=== PATIENT | male | born 1930 | race Caucasian/White ===

== ENCOUNTER 2018-04-19 11:05 | Inpatient (IN) | payer OTHER, MEDICARE ==
--- NOTE | 2018-04-19 11:12 | EDPHY ---
HPI/HX/ROS/PE/MDM Narrative: CHIEF COMPLAINT: Fall, left hip pain, loss of consciousness HISTORY OF PRESENT ILLNESS: The patient is an anticoagulated (aspirin) 88 y/o male with a history of diabetes, hypertension, hypercholesterolemia, complaining of left hip pain after fall this morning. He reports a mechanical fall when his left knee gave out while he was trying to clean the windows of his motor home. He was unable to stand after the fall and crawled back to his motor home. He denies loss of consciousness. He denies chest pain, cardiac history, lightheadedness, dizziness, or any other associated symptoms. No fever, chills, chest pain, shortness of breath, palpitations, vomiting, diarrhea, urinary complaints, headache, lightheadedness. REVIEW OF SYSTEMS: Aside from elements discussed in the HPI, a comprehensive 10-point review of systems was reviewed and is negative. PAST MEDICAL HISTORY: Diabetes mellitus type II, hypertension, hypercholesteremia, hypothyroid, depression SOCIAL HISTORY: Enjoys [employer] hunting, lives in [place], retired VITAL SIGNS: Reviewed by me GENERAL: Well-developed, well-nourished, reporting left hip pain. Skin slightly cool to the touch, likely from being outside. HEENT: Atraumatic. No facial or head trauma. Eyes: No icterus, no injection. ARIN. EOMI. Mouth: moist mucous membranes. No erythema or lesions. Neck: supple with no adenopathy. Nontender to palpation. LUNGS: Clear to auscultation bilaterally, no wheezes, rhonchi or rales. No chest trauma noted. CARDIAC: Regular rate and rhythm, no rubs, murmurs or gallops. ABDOMEN: Soft, nontender, nondistended, bowel sounds normal. BACK: No CVA tenderness. EXTREMITIES: Left lower extremity is internally rotated and shortened left lower extremity. Exam deferred pending x-ray. Pelvis is stable to compression. No trauma noted in the right lower extremity or left upper extremity. NEURO: Alert and oriented, grossly nonfocal. SKIN: Warm and dry, no rash. PSYCHIATRIC: Normal mentation, no agitation. ED Course: The patient presents with left hip pain after mechanical fall. He denies chest pain, lightheadedness, dizziness, or any other associated symptoms. He is unable to bear weight. On exam, his left lower extremity is internally rotated and shortened. Plan for hip x-ray, chest x-ray, CBC, basic metabolic panel, troponin, and EKG. 12:00 PM - X-ray indicates a fracture in the left hip. He will be admitted. Dr. Hernandez will be the admitting physician. Dr. Aparicio, orthopedics will consult. Surgery tentatively for this evening. No significant abnormalities in the patient's lab work. Troponin is 0.02. No ischemic changes on the EKG. 12-LEAD EKG: Please see the full report in [facility]. My interpretation: Sinus rhythm Patient received Dilaudid on several occasions for pain relief. MDM: Differential diagnosis of this patient's injury was considered including but not limited to intracranial injury, long bone and pelvic bone fracture, spinal injury, extremity injury, lacerations, abrasions, and contusions. - Data Points Imaging Results: Left Hip: Impression: Left femoral neck basicervical fracture with slight displacement. Dictated By: Amos Mendiola CXR: Impression: 1. Mild chronic bronchitis/airways disease. 2. Atherosclerotic aorta. 3. No focal pneumonia. Dictated By: Amos Mendiola Imaging: I viewed and interpreted images myself Laboratory Results: Laboratory Results 04/19/18 11:00 04/19/18 11:00 Medications Given: Acetaminophen (Tylenol) 650 mg PO Q4HRS PRN PRN Reason: Pain, Mild/Fever, Can Take PO Stop: 10/16/18 13:00 Last Admin: 04/19/18 18:28 Dose: 650 mg Amlodipine Besylate (Norvasc) 5 mg PO DAILY LIZY Stop: 10/17/18 08:59 Last Admin: 04/20/18 09:31 Dose: 5 mg Atorvastatin Calcium (Lipitor) 40 mg PO HS LIZY Stop: 10/16/18 20:59 Last Admin: 04/19/18 19:59 Dose: 40 mg Benazepril HCl (Lotensin) 20 mg PO DAILY LIZY Stop: 10/17/18 08:59 Last Admin: 04/20/18 09:31 Dose: 20 mg Enoxaparin Sodium (Lovenox) 30 mg SC DAILY LIZY Stop: 10/17/18 08:59 Last Admin: 04/20/18 07:38 Dose: Not Given Escitalopram Oxalate (Lexapro) 10 mg PO DAILY LIZY Stop: 10/17/18 08:59 Last Admin: 04/20/18 09:31 Dose: 10 mg Furosemide (Lasix) 20 mg PO DAILY LIZY Stop: 10/17/18 08:59 Last Admin: 04/20/18 09:31 Dose: 20 mg Hydromorphone HCl (Dilaudid) 1 mg IVP Q4HRS PRN PRN Reason: Pain, Severe Unable to Take PO Stop: 04/29/18 14:13 Last Admin: 04/19/18 14:45 Dose: 1 mg Sodium Chloride (Ns) 1,000 mls @ 100 mls/hr IV CONT ILZY Stop: 10/16/18 13:14 Last Admin: 04/20/18 00:41 Dose: 1,000 mls Levothyroxine Sodium (Synthroid) 137 mcg PO DAILY06 [facility] Stop: 10/17/18 05:59 Last Admin: 04/20/18 05:35 Dose: 137 mcg Miscellaneous Medication (Linagliptin [Tradjenta]) 5 mg PO DAILY LIZY Stop: 10/17/18 08:59 Last Admin: 04/20/18 12:55 Dose: Not Given Morphine Sulfate (Morphine) 2 - 4 mg IVP Q4 PRN PRN Reason: SEVERE PAIN Stop: 04/29/18 15:39 Last Admin: 04/20/18 09:30 Dose: 4 mg Multivitamins (Tab-A-Nikia) 1 each PO DAILY LIZY Stop: 10/17/18 08:59 Last Admin: 04/20/18 09:31 Dose: 1 each Oxycodone HCl (Oxycodone Ir) 5 - 10 mg PO Q4 PRN PRN Reason: Pain, Severe Able to Take PO Stop: 04/29/18 17:39 Last Admin: 04/19/18 20:56 Dose: 10 mg Pioglitazone HCl (Actos) 30 mg PO DAILY LIZY Stop: 10/17/18 08:59 Last Admin: 04/20/18 09:31 Dose: 30 mg Zolpidem Tartrate (Ambien) 10 mg PO HS LIZY Stop: 10/16/18 20:59 Last Admin: 04/19/18 19:59 Dose: 10 mg Discontinued Medications Hydromorphone HCl (Dilaudid) 1 mg IVP EDNOW ONE Stop: 04/19/18 11:29 Last Admin: 04/19/18 11:38 Dose: 1 mg Hydromorphone HCl (Dilaudid) 1 mg IVP EDNOW ONE Stop: 04/19/18 12:57 Last Admin: 04/19/18 13:00 Dose: 1 mg Cefazolin Sodium/Dextrose (Ancef 2 Gm) 100 mls @ 200 mls/hr IV ONCALL ONE PRN Reason: Protocol Stop: 04/20/18 08:33 Last Admin: 04/20/18 12:00 Dose: 100 mls Ropivacaine 80 mg/ Epinephrine (HCl 0.2 mg/ Syringe) 40.2 mls @ 0 mls/hr IU ONCALL ONE PRN Reason: As Directed Stop: 04/20/18 08:05 Last Admin: 04/20/18 12:45 Dose: 40.2 mls Tranexamic Acid 3,000 mg/ (Sodium Chloride) 50 mls @ 0 mls/hr IRR ONCALL ONE PRN Reason: As Directed Stop: 04/20/18 08:05 Last Admin: 04/20/18 12:46 Dose: 50 mls Point of Care Test Results: Chemistry 04/19/18 11:36 POC Troponin I 0.02 ng/mL ng/mL (0.00-0.08) General Initial Vital Signs: Initial Vital Signs Temperature (C) 36.6 C 04/19/18 11:05 Heart Rate 82 04/19/18 11:05 Respiratory Rate 16 04/19/18 11:05 Blood Pressure 159/70 H 04/19/18 11:05 O2 Sat (%) 98 04/19/18 11:05 O2 Delivery Mode Room Air Allergies/Adverse Reactions: No Known Allergies Allergy (Unverified 11/02/14 05:55) Home Medications: Medication Instructions Recorded Pioglitazone HCl [Actos] 30 mg PO DAILY 11/02/14 Aspirin EC [Aspirin EC 81 mg (*)] 81 mg PO HS 04/19/18 Atorvastatin Calcium [Lipitor 40 40 mg PO HS 04/19/18 mg (*)] Benazepril HCl [Lotensin (*)] 20 mg PO DAILY 04/19/18 Escitalopram Oxalate [Lexapro] 10 mg PO DAILY 04/19/18 Furosemide [Lasix 20 MG (*)] 20 mg PO DAILY 04/19/18 Herbals/Supplements -Info Only 1 ea PO DAILY 04/19/18 Hydrochlorothiazide [HCTZ (*)] 25 mg PO DAILY 04/19/18 Levothyroxine [Synthroid 137 mcg 137 mcg PO DAILY06 04/19/18 (*)] Linagliptin [Tradjenta] 5 mg PO DAILY 04/19/18 Multivitamins [Multivitamin (*)] 1 each PO DAILY 04/19/18 Zolpidem Tartrate [Ambien] 10 mg PO HS 04/19/18 amLODIPine BESYLATE [Norvasc 5 mg 5 mg PO DAILY 04/19/18 (*)] oxyCODONE/APAP 5/325 [Percocet 0.5 tab PO Q4H PRN 04/19/18 5/325 (*)] tiZANidine HCL [Zanaflex 2MG (*)] 2 mg PO DAILY PRN 04/19/18 Departure - Departure Disposition: [facility] Inpatient Acute Clinical Impression: Hip fracture Qualifiers: Encounter type: initial encounter Fracture type: closed Laterality: left Qualified Code(s): S72.002A - Fracture of unspecified part of neck of left femur , initial encounter for closed fracture Fall Qualifiers: Encounter type: initial encounter Qualified Code(s): W19.XXXA - Unspecified fall, initial encounter Condition: Fair Report Scribed for: Chanell Rosales Report Scribed by: Oanh Erickson Date of Report: 04/19/18 Time of Report: 11:44 Physician Review and Approval Statement: Portions of this note were transcribed by a medical assistant float. I personally performed a history, physical exam, medical decision making, and confirmed accuracy of information the transcribed note.
[2018-04-19] MEDS ORDERED: HYDROmorphONE/DILAUDID 1 MG/ML INJ IVP ONE (11:28)
[2018-04-19 11:35] LABS: PLATELET COUNT 225 10^3/uL (150-400)
[2018-04-19] MEDS ORDERED: HYDROmorphONE/DILAUDID 2 MG/ML INJ IVP ONE (12:56)
[2018-04-19] MEDS ORDERED: ACETAMINOPHEN 325 MG TAB PO PRN (13:01)
[2018-04-19] MEDS ORDERED: ONDANSETRON DISINTEGRATING 4 MG TAB PO PRN (13:01)
[2018-04-19] MEDS ORDERED: ONDANSETRON 4 MG/2 ML VIAL IVP PRN (13:01)
[2018-04-19] MEDS ORDERED: tiZANidine HCL 2 MG TAB PO PRN (13:14)
[2018-04-19] MEDS ORDERED: OXYCODONE/APAP 5/325 TAB PO PRN (13:14)
[2018-04-19] MEDS ORDERED: HYDROmorphONE/DILAUDID 2 MG/ML INJ IVP PRN (14:14)
[2018-04-19] MEDS: NS 1,000 ML IV SCH (14:47)
--- NOTE | 2018-04-19 15:19 | GHP ---
DATE OF ADMISSION: 04/19/2018 CHIEF COMPLAINT: Left hip pain. HISTORY OF PRESENT ILLNESS: The patient is an 88-year-old male who presented to the emergency room a fter suffering a fall from the standing position and developing acute left-sided hip pain. The patie nt today was preparing his motor home to go duck hunting in [place] when he was standing ground level an d his left knee gave out. At that point, he collapsed to the ground. He denies any loss of consciou sness. Denies hitting his head. Denies any other complaints. No shortness of breath, dyspnea, or c hest pain. He states that his left knee has been bad for some time, and he had planned to schedule a knee replacement in the future. REVIEW OF SYSTEMS: A comprehensive 10-point review of systems is negative other than noted in the HP I. PAST MEDICAL HISTORY: Diabetes type 2, hypertension, hypercholesterolemia, hypothyroidism, depressio n. SOCIAL HISTORY: The patient denies any alcohol or tobacco use. He is retired. He lives in [place]. PHYSICAL EXAM: GENERAL: The patient is alert, in no acute distress, oriented. VITAL SIGNS: Afebrile at 36.5, pulse is 96, respiratory rate is 18, blood pressure is 149/67. He is saturating 96 % on room air. HEENT: Normocephalic, atraumatic. Mucosal membranes are moist. Pupils equal, round , reactive to light. LUNGS: Clear to auscultation bilaterally. No rhonchi or wheezes noted. CARDI OVASCULAR: Regular rate and rhythm. No gallop or murmur appreciated. GASTROINTESTINAL: Abdomen arnaldo wel sounds are positive. Soft and nontender. There is no guarding or rigidity noted. EXTREMITIES: Without any clubbing or cyanosis. There is no edema identified. NEUROLOGIC: The patient is alert and oriented, grossly intact. SKIN: Warm and dry. No rashes or lesions appreciated. LABORATORY EVALUATION: BUN is 31 with a creatinine of 1.4, glucose is 185. Hemoglobin 11.8 with hem atocrit of 35.1. RADIOLOGICAL STUDIES: Include hip x-ray noting a left femoral neck fracture with slight displacement , personally reviewed. EKG sinus rhythm, personally evaluated. Chest x-ray noting some mild airway disease. No focal interactions. ALLERGIES: None. HOME MEDICATIONS: Zanaflex, Ambien, multivitamin, Percocet, Actos, levothyroxine, hydrochlorothiazid e, furosemide, Lexapro, Lotensin, Lipitor, Norvasc, aspirin, Tradjenta. ASSESSMENT AND PLAN: The patient is an 88-year-old male who suffered a mechanical fall and presented to the emergency room with complaints of left hip pain. He was evaluated and diagnosed with: 1. Left hip fracture. During this hospitalization, he received a consultation from Dr. Aparicio of [facility]. Plan is for surgical intervention of the patient's hip. He will remain nothing by mouth with supportive management. 2. Acute kidney injury. This in the setting of diuretic therapy. The patient's hydrochlorothiazide has been held at this time. He will continue on his Lasix and intravenous fluids have been ordered. 3. Pain. Intravenous Dilaudid will be continued prior to surgical intervention. He will be transit ioned to oral analgesics once he is in the postoperative setting. 4. Diabetes mellitus type 2. Continue the patient's previously prescribed home medications and admi nister sliding scale insulin if needed. 5. Deep venous thrombosis prophylaxis. The patient will be initiated on Lovenox in the postoperativ e setting. 6. History of hypothyroidism. Home medications will be continued. DISPOSITION: The patient will be admitted under inpatient status given the need for surgical interve ntion and anticipated greater than 48 hour hospital course. I have discussed the patient's care with Dr. Aparicio as well as Dr. Rosales of the emergency room. Aniya franklin adjustments will be made to his hospitalization as needed. /[id number]/MODL
--- NOTE | 2018-04-19 16:55 | GCON ---
I was asked to see this patient by the emergency room as he was diagnosed with a left femoral neck fr acture. The patient sustained a ground level fall earlier today resulting in pain and inability to a mbulate. By history, the patient does have some prodromal hip pain. He has been seen by Dr. Emmanuel azar previously for knee arthritis. He does not have a history of cancer. He does not have a hi story of bisphosphonate use, per his recollection, and he uses a cane to ambulate. PHYSICAL EXAMINATION: The skin overlying the left hip is clean, dry, and intact. The extremity is s hortened and externally rotated and grossly neurologically intact, limited at this time by pain. RADIOGRAPHS: I reviewed the images. They demonstrate a femoral neck fracture with displacement and varus angulation. 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 IMPRESSION: Left femoral neck fracture. PLAN: I have reached out to Dr. Emmanuel Dias to discuss management. Ultimately, this will requir e operative fixation either with a hemiarthroplasty or a total hip arthroplasty. At this point, I wi ll defer to Dr. Dias to see if he would like to address this himself. If I do not hear from him or if we move forward, I am happy to perform a hemiarthroplasty for this patient and will consent kandace perez accordingly. All questions answered for the patient at this time. Please do not hesitate to contact me with any questions regarding this patient over the weekend or mo ving forward. My cell phone is [phone]. /[id number]/MODL
[2018-04-19] MEDS: oxyCODONE IR 5 MG TAB PO PRN ×2 (17:48→20:56)
--- NOTE | 2018-04-19 19:57 | CPEKG ---
Test Reason : OPEN Blood Pressure : / mmHG Vent. Rate : 070 BPM Atrial Rate : 069 BPM P-R Int : 236 ms QRS Dur : 091 ms QT Int : 441 ms P-R-T Axes : 074 046 060 degrees QTc Int : 476 ms Sinus rhythm Prolonged IN interval Borderline prolonged QT interval Confirmed by Chanell Rosales ([id number]) on 04/19/2018 7:57:34 PM Referred By: Confirmed By:Chanell Rosales
[2018-04-19] MEDS: ATORVASTATIN CALCIUM 40 MG TAB PO SCH (19:59)
[2018-04-19] MEDS: ZOLPIDEM TARTRATE 5 MG TAB PO SCH (19:59)
[2018-04-20] MEDS: NS 1,000 ML IV SCH (00:41)
[2018-04-20] MEDS ORDERED: LEVOTHYROXINE 137 MCG TAB PO SCH (06:00)
[2018-04-20] MEDS: ENOXAPARIN 30 MG/0.3 ML SYR SC SCH (07:38)
[2018-04-20] MEDS ORDERED: TRANEXAMIC ACID 3,000 MG in NS (SYRINGE) 50 ML IRR ONE (08:04)
[2018-04-20] MEDS ORDERED: ceFAZolin 2 GM/DEXTROSE 100 ML IV ONE (08:04)
[2018-04-20] MEDS ORDERED: ROPIVACAINE 0.2% 80 MG, EPINEPHrine 0.2 MG in SYRINGE 0 ML IU ONE (08:04)
[2018-04-20] MEDS ORDERED: PIOGLITAZONE HCL 15 MG TAB PO SCH (09:00)
[2018-04-20] MEDS ORDERED: Herbals/Supplements -Info Only PO SCH (09:00)
[2018-04-20] MEDS: BENAZEPRIL HCL 20 MG TAB PO SCH (09:31)
[2018-04-20] MEDS: FUROSEMIDE 20 MG TAB PO SCH (09:31)
[2018-04-20] MEDS: amLODIPine BESYLATE 5 MG TAB PO SCH (09:31)
[2018-04-20] MEDS: ESCITALOPRAM OXALATE 10 MG TAB PO SCH (09:31)
[2018-04-20] MEDS: MULTIVITAMINS 1 EACH TAB PO SCH (09:31)
--- NOTE | 2018-04-20 10:12 | GPROG ---
At this point, we are all set for a total hip replacement versus a partial hip replacement with the p atient today at noon. I have spoken with Dr. Dias. We both reviewed the images, feel that that is the appropriate operation for the patient. I have already explained all the risks, benefits, and alternatives of the operation to the patient, including but not limited to , vascular damage, n erve damage, dislocation, fracture, need for further surgery. The patient expressed good understandi ng, and I will see him later today. Will get his surgery all set up for this afternoon at 12 p.m. I have also communicated this to the patient's nurse as well as and daughter. /[id number]/MODL
--- NOTE | 2018-04-20 10:27 | HOSPPROG ---
Hospitalist Progress Note Assessment/Plan: 88 yo M w hip fracture preop eval: active man. > 4 mets to OR w/out further workup or intervention first degree AV block: follow on telemetry denies presyncope or LOC w fall hip fracture: to OR today pain: well controlled dm: continue meds proph: LMWH dispo: inpt ALLAN: repeat labs P Subjective: ekg w first degree AV block (interp by me). no ischemic changes. pain well controlled. cxr w no acute disease (interp by me) Objective: Vital Signs Temp Pulse Resp BP Pulse Ox 36.9 C 69 16 132/60 H 95 04/20/18 08:00 04/20/18 08:00 04/20/18 08:00 04/20/18 09:31 04/20/18 08:00 Laboratory Results 04/20/18 10:05 04/19/18 04/20/18 04/21/18 05:59 05:59 05:59 Intake Total 800 Output Total 1600 Balance 800 -1600 - Physical Exam Constitutional: no apparent distress, appears nourished Eyes: PERRL, anicteric sclera Ears, Nose, Mouth, Throat: moist mucous membranes, hearing normal Cardiovascular: regular rate and rhythym, no murmur, rub, or gallop, No systolic murmur Respiratory: no respiratory distress, no rales or rhonchi Gastrointestinal: normoactive bowel sounds, soft, non-tender abdomen Genitourinary: ahumada in urethra Skin: warm, normal color Musculoskeletal: other (L leg shortened, externally rotated) Neurologic: AAOx3, sensation intact bilaterally Psychiatric: interacting appropriately ICD10 Worksheet Patient Problems: Problems Problem Status Onset Hip fracture Acute
[2018-04-20] MEDS ORDERED: CEFAZOLIN 2 GM/DEXTROSE/100 ML BAG IV ONE (11:40)
[2018-04-20] MEDS ORDERED: PROPOFOL 200 MG/20 ML VIAL ONE (11:47)
[2018-04-20] MEDS ORDERED: HYDROmorphONE/DILAUDID 2 MG/ML INJ ONE (11:48)
--- NOTE | 2018-04-20 12:47 | PDMN ---
Medical Necessity Medical necessity: Pt meets IP criteria per [employer]; est los >2 mn for eval/tx of L hip fx w/fall & acute kidney injury in setting of diuretic therapy; requiring further monitoring, Ortho consult w/surgical intervention, NPO status, IVFs & med/pain management; comorbid advanced age, diabetes, HTN; per H&P & order
[2018-04-20] MEDS ORDERED: ROCURONIUM 50 MG/5 ML VIAL ONE (13:18)
[2018-04-20] MEDS ORDERED: SUGAMMADEX SODIUM 200 MG/2 ML VIAL IVP ONE (13:18)
[2018-04-20] MEDS ORDERED: ONDANSETRON 4 MG/2 ML VIAL ONE (13:24)
[2018-04-20] MEDS ORDERED: BISACODYL 10 MG SUPP PR PRN (13:37)
[2018-04-20] MEDS ORDERED: MAGNESIUM HYDROXIDE 30 ML UDCUP PO PRN (13:37)
[2018-04-20] MEDS ORDERED: LACTULOSE 20 GM/30 ML UDCUP PO PRN (13:37)
[2018-04-20] MEDS ORDERED: HYDROmorphONE/DILAUDID 2 MG/ML INJ IVP PRN (13:40)
[2018-04-20] MEDS ORDERED: PROMETHAZINE HCL 25 MG/ML INJ IVP PRN (13:40)
[2018-04-20] MEDS ORDERED: fentaNYL 100 MCG/2 ML INJ IVP PRN (13:40)
[2018-04-20] MEDS ORDERED: ACETAMINOPHEN 500 MG TAB PO PRN (13:40)
[2018-04-20] MEDS ORDERED: ONDANSETRON 4 MG/2 ML VIAL IVP PRN (13:40)
[2018-04-20] MEDS ORDERED: ALBUTEROL 3 ML DEYVIAL IH PRN (13:40)
[2018-04-20] MEDS ORDERED: oxyCODONE IR 5 MG TAB PO PRN (13:40)
[2018-04-20] MEDS ORDERED: NALOXONE HCL 0.4 MG/ML INJ IVP PRN (13:40)
--- NOTE | 2018-04-20 13:40 | PDANEPAE ---
ANE History of Present Illness Left RADHA ANE Past Medical History - Cardiovascular History Hx Hypertension: Yes - Pulmonary History Hx Oxygen in Use at Home: No Hx Sleep Apnea: No Sleep Apnea Screening Result - Last Documented: Positive - Endocrine History Hx Diabetes: Yes ANE Review of Systems Review of Systems: ANE Patient History - Allergies Allergies/Adverse Reactions: No Known Allergies Allergy (Unverified 11/02/14 05:55) - Home Medications Home Medications: Pioglitazone HCl [Actos] 30 mg PO DAILY 11/02/14 [Last Taken 04/19/18] Aspirin EC [Aspirin EC 81 mg (*)] 81 mg PO HS 04/19/18 [Last Taken 04/18/18] Atorvastatin Calcium [Lipitor 40 mg (*)] 40 mg PO HS 04/19/18 [Last Taken ] Benazepril HCl [Lotensin (*)] 20 mg PO DAILY 04/19/18 [Last Taken 04/19/18] Escitalopram Oxalate [Lexapro] 10 mg PO DAILY 04/19/18 [Last Taken 04/19/18] Furosemide [Lasix 20 MG (*)] 20 mg PO DAILY 04/19/18 [Last Taken 04/18/18] Herbals/Supplements -Info Only 1 ea PO DAILY 04/19/18 [Last Taken Unknown] Hydrochlorothiazide [HCTZ (*)] 25 mg PO DAILY 04/19/18 [Last Taken 04/19/18] Levothyroxine [Synthroid 137 mcg (*)] 137 mcg PO DAILY06 04/19/18 [Last Taken ] Linagliptin [Tradjenta] 5 mg PO DAILY 04/19/18 [Last Taken 04/19/18] Multivitamins [Multivitamin (*)] 1 each PO DAILY 04/19/18 [Last Taken 04/19/18] Zolpidem Tartrate [Ambien] 10 mg PO HS 04/19/18 [Last Taken 04/18/18] amLODIPine BESYLATE [Norvasc 5 mg (*)] 5 mg PO DAILY 04/19/18 [Last Taken ] oxyCODONE/APAP 5/325 [Percocet 5/325 (*)] 0.5 tab PO Q4H PRN 04/19/18 [Last Taken 04/19/18] tiZANidine HCL [Zanaflex 2MG (*)] 2 mg PO DAILY PRN 04/19/18 [Last Taken ] - NPO status NPO Since - Liquids (Date): 04/20/18 NPO Since - Liquids (Time): 00:00 NPO Since - Solids (Date): 04/20/18 NPO Since - Solids (Time): 00:00 - Smoking Hx Smoking Status: Never smoked ANE Labs/Vital Signs - Labs Result Diagrams: 04/20/18 10:05 04/20/18 10:05 - Vital Signs Blood Pressure: 137/55 Heart Rate: 80 Respiratory Rate: 18 O2 Sat (%): 96 Height: 185.42 cm Weight: 99.79 kg ANE Physical Exam - Airway Neck exam: FROM Mallampati Score: Class 2 - Pulmonary Pulmonary: clear to auscultation - Cardiovascular Cardiovascular: regular rate and rhythym - ASA Status ASA Status: III ANE Anesthesia Plan Anesthesia Plan: GA w LMA
--- NOTE | 2018-04-20 13:42 | POSTANESTH ---
Post Anesthetic Evaluation Cardiovascular Status: Normal, Stable Respiratory Status: Normal, Stable, Similar to Pre-op Cond. Level of Consciousness/Mental Status: Mildly Sleepy, Arousable Pain Control: Adequate, Prn Tx Ordered Nausea/Vomiting Control: Adequate, Prn Tx Ordered Complications Possibly Related to Anesthesia: None Noted
--- NOTE | 2018-04-20 13:54 | ASMTCMCOM ---
CM Note CM Note Notes: 88yr old male admitted after a fall with L hip fx. He has a Hx ofDM-2, HTN, Hypercholesterolemia, Hyperthyroid, Depression. Patient had surgery today. Therapies to eval for discharge needs. CM to follow. Date Signed: 04/20/2018 01:53 PM Electronically Signed By:Bianca Perez LCSW
[2018-04-20] MEDS ORDERED: LR 1,000 ML IV SCH (14:00)
[2018-04-20] MEDS: oxyCODONE IR 5 MG TAB PO PRN ×2 (16:39→21:43)
--- NOTE | 2018-04-20 17:15 | GOP ---
DATE OF OPERATION: 04/20/2018 SURGEON: Arnold Dias MD BELLHOP CAPTAIN: Carlos Aparicio MD ANESTHESIA: Spinal. PREOPERATIVE DIAGNOSIS: Left displaced femoral neck fracture. POSTOPERATIVE DIAGNOSIS: Left displaced femoral neck fracture. PROCEDURE PERFORMED: left Total hip arthroplasty with x-ray. FINDINGS: ESTIMATED BLOOD LOSS: 200 cc. INDICATIONS: The patient has progressively worsening arthritis of the hip which has failed medical management. The patient understands the treatment options including continued non-operative care and has selected surgical intervention. The patient has decided to undergo total hip arthroplasty via the direct anterior approach, understanding the risks of the procedure including , but not limited to, neurovascular injury, infection, persistent pain, component wear and loosening, deep venous thrombosis, pulmonary embolism, limb length inequality, hip instability (including dislocation), and intra-operative fractures. DESCRIPTION OF PROCEDURE: After proper identification of the patient including verification and marking the surgical site, the patient was brought to the operating room and placed in the supine position. All bony prominences were well padded. Anesthesia was induced without complication and intravenous prophylactic antibiotics were administered prior to skin incision. The operative leg was placed in the Trumpf Arch table extension and the well leg in a Yellofin leg guzman. The patient was prepped and draped in the usual sterile fashion. The C-arm was draped for intra-operative fluoroscopy to check acetabular position, femoral component position including leg length and femoral offset. Attention was then drawn to surgical exposure of the hip. An incision was made with a #10 Bard Charles blade starting 3 cm lateral and 3 cm distal to the anterior superior iliac spine measuring 8-10 cm and coursing distally toward the greater trochanter. The skin and subcutaneous tissues were divided sharply down to the fascia rikki. The fascia rikki was incised in line with the skin incision exposing the underlying tensor fascia rikki muscle. The muscle was bluntly elevated from the fascia and the first extracapsular Cobra retractor was placed laterally at the junction of the superior femoral neck and greater trochanter. The lateral femoral circumflex vessels were identified, cauterized , and divided with the Aquamantys bipolar cautery. The deep investing fascia of the TFL was divided to allow proper mobilization of the muscle preventing damage during the retraction. The reflected head of the rectus femoris muscle was elevated off the anterior hip capsule and a medial Cobra retractor was placed just proximal to the lesser trochanter. The anterior capsulotomy was made sharply from the superolateral acetabulum to the saddle junction of the superior femoral neck and greater trochanter, then coursing inferomedial towards the lesser trochanter. The retractors were then placed in the intracapsular position for femoral neck osteotomy. Corresponding to pre-operative templating, the osteotomy was made with the oscillating saw carefully protecting the greater trochanter and soft tissues. The femoral head was removed from the acetabulum with a corkscrew and confirmed to be a femoral neck fracture. The Arch table extension was then placed in 40 degrees external rotation. Attention was then drawn to the acetabular preparation. After placement of the anterior and posterior Cobra retractors outside the labrum and intracapsular, the circumferential labrum was removed sharply. The foveal contents were then removed and hemostasis obtained with cautery. The first reamer selected was sized using the removed femoral head. Reaming began with medialization and then commenced in 2 mm increments at 45 degrees of abduction and 15 degrees of anteversion using fluoroscopic navigation. Reaming ceased 1 mm less than the definitive acetabular component and corresponded to the pre-operative templating. The final acetabular component was inserted using fluoroscopy to achieve proper orientation yielding excellent purchase and stability in the acetabulum. The final acetabular liner was then placed and its seating confirmed. Attention was then turned to the femur. The Arch table extension was placed in extension and adduction, delivering the osteotomized femoral neck into the wound. A 2-pronged femoral elevator was placed at the calcar and another at the tip of the greater trochanter. The posterolateral capsule was released with cautery allowing mobilization of the femur lateral and anterior for preparation. The external rotators were visualized and preserved. A curette and rongeur were used to open the starting point for broaching. Serial broaching started with the #0 broach and ended with the broach that exhibited excellent fit in the proximal femur. A change in pitch during mallet strikes was accompanied by the inability to advance the broach any further. The trial reduction was performed and fluoroscopic navigation was utilized to check limb length. Adjustments were made to equalize limb length accordingly. After the final trials were accepted they were removed and the wound was copiously lavaged. The femoral component was seated to the same depth as the final broach and the femoral head was impacted onto the clean trunnion. The hip was then reduced for the final time and once more fluoroscopy was used to check that limb length equality was achieved. The wound was irrigated and closed in layers, the fascia rikki with 2-0 Quill, the subcutaneous tissue with 2-0 Quill, and the skin with Dermabond. Sterile dressings were applied. Final sharps and sponge counts were accurate. The patient was then transferred to a hospital bed and brought to the recovery room in stable condition. IMPLANTS: Accolade II size 7 x 132, acetabular component Trident II 56 mm, liner Trident X3 36 mm, head is a Biolox Delta 36 mm -5. /[id number]/MODL MTDD
[2018-04-20] MEDS: ceFAZolin 2 GM/DEXTROSE 100 ML IV SCH (20:32)
[2018-04-20] MEDS: ATORVASTATIN CALCIUM 40 MG TAB PO SCH (20:39)
[2018-04-20] MEDS: SENNOSIDES/DOCUSATE SODIUM TAB PO SCH (20:39)
[2018-04-20] MEDS: ZOLPIDEM TARTRATE 5 MG TAB PO SCH (20:39)
[2018-04-21] MEDS: ceFAZolin 2 GM/DEXTROSE 100 ML IV SCH (04:02)
[2018-04-21] MEDS: oxyCODONE IR 5 MG TAB PO PRN ×5 (05:07→21:29)
[2018-04-21] MEDS: LEVOTHYROXINE 137 MCG TAB PO SCH (05:08)
[2018-04-21] MEDS: ENOXAPARIN 30 MG/0.3 ML SYR SC SCH (07:51)
[2018-04-21] MEDS: POLYETHYLENE GLYCOL 3350 17 GM PKT PO PRN (07:51)
[2018-04-21] MEDS: SENNOSIDES/DOCUSATE SODIUM TAB PO SCH ×2 (07:51→21:30)
[2018-04-21] MEDS: MULTIVITAMINS 1 EACH TAB PO SCH (07:52)
[2018-04-21] MEDS: ESCITALOPRAM OXALATE 10 MG TAB PO SCH (07:53)
[2018-04-21] MEDS: FUROSEMIDE 20 MG TAB PO SCH (10:09)
[2018-04-21] MEDS: amLODIPine BESYLATE 5 MG TAB PO SCH (10:10)
[2018-04-21] MEDS: BENAZEPRIL HCL 20 MG TAB PO SCH (10:10)
[2018-04-21] MEDS: PIOGLITAZONE 30 MG PO SCH (10:34)
--- NOTE | 2018-04-21 10:48 | GPROG ---
DATE OF SERVICE: 04/21/2018 I saw and evaluated the patient on my morning rounds today. Overall, he offers no unusual complaints . He reports that his pain is markedly improved since the operation. PHYSICAL EXAMINATION: The dressing is clean, dry, intact and left in place. Rotation and length of the left extremity are identical to that of the right. He has no sensory, motor, or vascular deficit s. IMAGING: I reviewed the patient's postoperative pelvis x-ray. The total hip replacement appears to be well positioned. There is no evidence of fracture or dislocation. ASSESSMENT AND PLAN: Care by the primary team is much appreciated. At this point, we would just rec ommend anterior hip precautions, physical therapy, occupational therapy, and DVT prophylaxis. The pa tient should have received all of his antibiotics postoperatively. Moving forward, I will see the pa tient on a daily basis. If there are any further questions or concerns, please do not hesitate to co ntact me directly. Moving forward, the patient can follow up with Dr. Dias 2 weeks from the ope ration. /[id number]/MODL
--- NOTE | 2018-04-21 11:14 | HOSPPROG ---
Hospitalist Progress Note Assessment/Plan: 88 yo M w hip fracture. Mechanical fall. #preop eval: active man. > 4 mets to OR w/out further workup or intervention #first degree AV block: follow on telemetry denies presyncope or LOC w fall #hip fracture: POD #1 rehab consult ordered #pain: well controlled #ALALN: repeat labs stable pt on lasix, HCTZ outpatient will restart both #dm: continue meds #proph: LMWH #dispo: inpt will need rehab Subjective: Up walking. Feels well. Pain stable. Objective: Vital Signs Temp Pulse Resp BP Pulse Ox 36.4 C 65 16 129/48 H 88 L 04/21/18 07:29 04/21/18 07:29 04/21/18 07:29 04/21/18 10:10 04/21/18 09:30 Laboratory Results 04/21/18 09:15 04/21/18 09:15 04/20/18 04/21/18 04/22/18 05:59 05:59 05:59 Intake Total 800 3650 Output Total 4180 300 Balance 800 -530 -300 - Physical Exam Constitutional: no apparent distress, appears nourished Eyes: PERRL, anicteric sclera Ears, Nose, Mouth, Throat: moist mucous membranes, hearing normal Cardiovascular: No JVD, No edema Respiratory: no respiratory distress, reduced air movement Gastrointestinal: No tenderness, No ascites Skin: warm, normal color, No mottled Musculoskeletal: joint tenderness, pain with ROM, generalized weakness Neurologic: AAOx3 Psychiatric: interacting appropriately, not anxious, not encephalopathic ICD10 Worksheet Patient Problems: Problems Problem Status Onset Hip fracture Acute Fall Acute
--- NOTE | 2018-04-21 11:31 | ASMTCMCOM ---
CM Note CM Note Notes: Patient is POD #1 L RADHA. He is doing well. PT and hospital medicine are recommending [facility] inpatient rehab, so we will await their evaluation. Case Management will follow. Date Signed: 04/21/2018 11:31 AM Electronically Signed By:Bettye Fairbanks RN
[2018-04-21] MEDS: ATORVASTATIN CALCIUM 40 MG TAB PO SCH (21:29)
[2018-04-21] MEDS: ZOLPIDEM TARTRATE 5 MG TAB PO SCH (21:30)
[2018-04-22] MEDS: NS 1,000 ML IV SCH (05:01)
[2018-04-22] MEDS: LEVOTHYROXINE 137 MCG TAB PO SCH (05:05)
[2018-04-22] MEDS: ENOXAPARIN 40 MG/0.4 ML SYR SC SCH (09:54)
[2018-04-22] MEDS: amLODIPine BESYLATE 5 MG TAB PO SCH (09:54)
[2018-04-22] MEDS: BENAZEPRIL HCL 20 MG TAB PO SCH (09:54)
[2018-04-22] MEDS: FUROSEMIDE 20 MG TAB PO SCH (09:55)
[2018-04-22] MEDS: ESCITALOPRAM OXALATE 10 MG TAB PO SCH (09:55)
[2018-04-22] MEDS: SENNOSIDES/DOCUSATE SODIUM TAB PO SCH ×2 (09:55→22:38)
[2018-04-22] MEDS: HYDROCHLOROTHIAZIDE 25 MG TAB PO SCH (09:55)
[2018-04-22] MEDS: MULTIVITAMINS 1 EACH TAB PO SCH (09:55)
[2018-04-22] MEDS: POLYETHYLENE GLYCOL 3350 17 GM PKT PO PRN (09:55)
[2018-04-22] MEDS: PIOGLITAZONE 30 MG PO SCH (09:57)
[2018-04-22] MEDS: oxyCODONE IR 5 MG TAB PO PRN ×4 (10:16→23:47)
--- NOTE | 2018-04-22 12:37 | HOSPPROG ---
Hospitalist Progress Note Assessment/Plan: 88 yo M w hip fracture. Mechanical fall. #preop eval: active man. > 4 mets to OR w/out further workup or intervention #first degree AV block: follow on telemetry denies presyncope or LOC w fall #hip fracture: POD #2 rehab consult ordered #pain: worse today per pt will get xray to assure no complications #ALLAN: repeat labs stable pt on lasix, HCTZ outpatient will restart both #dm: continue meds #proph: LMWH #dispo: inpt will need rehab await rehab eval Subjective: Up in chair. Having siginificat pain today. No other issues. Objective: Vital Signs Temp Pulse Resp BP Pulse Ox 36.9 C 73 17 140/47 H 92 04/22/18 07:50 04/22/18 07:50 04/22/18 07:50 04/22/18 09:55 04/22/18 07:50 Laboratory Results 04/21/18 09:15 04/21/18 09:15 04/21/18 04/22/18 04/23/18 05:59 05:59 05:59 Intake Total 3650 1180 450 Output Total 4180 1775 150 Balance -530 -595 300 - Physical Exam Constitutional: appears nourished, uncomfortable Eyes: PERRL, anicteric sclera Ears, Nose, Mouth, Throat: moist mucous membranes, hearing normal Cardiovascular: No JVD, No tachycardia, No edema Respiratory: no respiratory distress, no rales or rhonchi, reduced air movement Gastrointestinal: normoactive bowel sounds, No tenderness, No ascites Skin: warm, normal color, No mottled Musculoskeletal: joint tenderness, pain with ROM, muscular tenderness, abnormal gait, generalized weakness Neurologic: AAOx3 Psychiatric: not anxious, not encephalopathic, thought process linear ICD10 Worksheet Patient Problems: Problems Problem Status Onset Hip fracture Acute Fall Acute
--- NOTE | 2018-04-22 13:10 | GPROG ---
DATE OF SERVICE: 04/22/2018 I saw the patient today during my afternoon rounds. Overall, he is doing quite well. The catheter h as been pulled. An x-ray was done last night, which demonstrates no evidence of fracture or dislocat ion. PHYSICAL EXAMINATION: The patient has no sensory, motor, or vascular deficits. ASSESSMENT/PLAN: Moving forward, the patient can be discharged whenever he is medically stable. He should be on some sort of DVT prophylaxis mechanically for the next 4 weeks. This can be aspirin felix ly or whatever is agreed upon by Dr. Dias's office. The patient should see Dr. Dias postop eratively, but I am happy to see and follow him as well. First postop visit should be at 2 weeks. A ll questions answered. /[id number]/MODL
[2018-04-22] MEDS: ACETAMINOPHEN 325 MG TAB PO SCH ×2 (19:01→23:47)
[2018-04-22] MEDS: ATORVASTATIN CALCIUM 40 MG TAB PO SCH (22:39)
[2018-04-22] MEDS: ZOLPIDEM TARTRATE 5 MG TAB PO SCH (22:39)
[2018-04-23] MEDS: ACETAMINOPHEN 325 MG TAB PO SCH ×2 (06:29→11:23)
[2018-04-23] MEDS: LEVOTHYROXINE 137 MCG TAB PO SCH (06:30)
[2018-04-23] MEDS: POLYETHYLENE GLYCOL 3350 17 GM PKT PO PRN (09:27)
[2018-04-23] MEDS: MULTIVITAMINS 1 EACH TAB PO SCH (09:29)
[2018-04-23] MEDS: SENNOSIDES/DOCUSATE SODIUM TAB PO SCH (09:29)
[2018-04-23] MEDS: ESCITALOPRAM OXALATE 10 MG TAB PO SCH (09:29)
[2018-04-23] MEDS: amLODIPine BESYLATE 5 MG TAB PO SCH (09:32)
[2018-04-23] MEDS: ENOXAPARIN 40 MG/0.4 ML SYR SC SCH (09:32)
[2018-04-23] MEDS: BENAZEPRIL HCL 20 MG TAB PO SCH (09:32)
[2018-04-23] MEDS: FUROSEMIDE 20 MG TAB PO SCH (09:33)
[2018-04-23] MEDS: HYDROCHLOROTHIAZIDE 25 MG TAB PO SCH (09:33)
[2018-04-23] MEDS: PIOGLITAZONE 30 MG PO SCH (09:33)
--- NOTE | 2018-04-23 09:40 | GPROG ---
I saw the patient on my morning rounds today. Overall, he is doing quite well. He reports that the pain has been getting better on a daily basis. PHYSICAL EXAM: The dressing is clean, dry, intact and left in place. He has no sensory or vascular deficits. Length and rotation of the operative extremity are identical to the contralateral side. ASSESSMENT/PLAN: I spoke to Dr. Dias about this patient yesterday. He would like to see him in his office in 2 weeks. Until then, he is to obey anterior hip precautions. /[id number]/MODL
[2018-04-23 09:41] VITALS: BP 131/56
--- NOTE | 2018-04-23 10:01 | PDIAF ---
- Diagnosis Code Status: Full Code - Medication Management Discharge Medications: Medications to Continue on Transfer Pioglitazone HCl [Actos] 30 mg PO DAILY 11/02/14 [Last Taken 04/19/18] Atorvastatin Calcium [Lipitor 40 mg (*)] 40 mg PO HS 04/19/18 [Last Taken ] Benazepril HCl [Lotensin (*)] 20 mg PO DAILY 04/19/18 [Last Taken 04/19/18] Escitalopram Oxalate [Lexapro 10 MG] 10 mg PO DAILY 04/19/18 [Last Taken ] Furosemide [Lasix 20 MG (*)] 20 mg PO DAILY 04/19/18 [Last Taken 04/18/18] Hydrochlorothiazide [HCTZ (*)] 25 mg PO DAILY 04/19/18 [Last Taken 04/19/18] Levothyroxine [Synthroid 137 mcg (*)] 137 mcg PO DAILY06 04/19/18 [Last Taken ] Linagliptin [Tradjenta] 5 mg PO DAILY 04/19/18 [Last Taken 04/19/18] Multivitamins [Multivitamin (*)] 1 each PO DAILY 04/19/18 [Last Taken 04/19/18] Zolpidem Tartrate [Ambien] 10 mg PO HS 04/19/18 [Last Taken 04/18/18] amLODIPine BESYLATE [Norvasc 5 mg (*)] 5 mg PO DAILY 04/19/18 [Last Taken ] tiZANidine HCL [Zanaflex 2MG (*)] 2 mg PO DAILY PRN 04/19/18 [Last Taken ] Acetaminophen [Tylenol 325mg (*)] 650 mg PO Q6HRS tab 04/23/18 [Last Taken Unknown] Aspirin EC [Aspirin EC 81 mg (*)] 81 mg PO BID #0 04/23/18 [Last Taken 04/18/18] Polyethylene Glycol 3350 [Miralax 17 gm (*)] 17 gm PO DAILY pkt 04/23/18 [Last Taken Unknown] Sennosides/Docusate Sodium [Senokot-S] 1 - 2 tab PO BID tab 04/23/18 [Last Taken Unknown] oxyCODONE IR [Oxycodone Ir (*)] 5 - 10 mg PO Q4 PRN tab 04/23/18 [Last Taken Unknown] [facility] Antibiotics: n/a Discharge Medications: Refer to the Discharge Home Medication list for PRN reason. PICC Care - Routine: N/A - Orders Home Care Face to Face: 04/23/2018, Dr Jenn Delgado Isolation Type: None Diet Recommendation: ADA 2200 consistent carb Diet Texture: Regular Texture Diet Bose: Not applicable Wound Care Instructions: routine Activity/Weight Bearing Restrictions: see ortho instructions Additional Instructions: WBAT after surgery Resume DVT ppx postop, F/u with Dr. Aparicio/Larissa 2 weeks after surgery Keep incision clean and dry. Pain Rx and disposition per hospitalist. Dr. Aparicio/Larissa office: [phone] - Follow Up Care Current Providers and Referrals: Ellen Dias MD [Medical Doctor] - follow up in 2 weeks Dashawn Vaughn MD [Primary Care Provider] - 3 days of d/c SNF/Rehab
--- NOTE | 2018-04-23 11:14 | ASMTLACE ---
LACE Length of stay for Answers: 4-6 days current admission Acuity / Level of Answers: Yes Care: Did the patient have an inpatient admission? Comorbidities - select Answers: Coronary Artery Disease all that apply Diabetes (uncontrolled or controlled) Other Notes: Fall- L hip fx # of Emergency department Answers: 1-2 visits in the last 6 months Social determinants Answers: Mental health diagnosis (anxiety, depression, pers onality disorders, etc.) Score: 15 Date Signed: 04/23/2018 11:13 AM Electronically Signed By:RASHID Hernandez
--- NOTE | 2018-04-23 11:15 | ASMTCMCOM ---
CM Note CM Note Notes: Pt medically stable for d/c to [facility] inpatient rehab. Orders to be obtained via [employer]. Pt agrees to [employer] payment for transport there. Transport set for 11:00. Date Signed: 04/23/2018 11:15 AM Electronically Signed By:RASHID Hernandez
--- NOTE | 2018-04-23 13:31 | ASDISCHSUM ---
Discharge Information Plan Status:Inpatient Rehab Medically Cleared to Leave: Discharge Date:04/23/2018 11:35 AM CM D/C Disposition:[facility] IP ADT D/C Disposition:[facility] IP Projected Discharge Date:04/23/2018 11:00 AM Transportation at D/C:Wheelchair Van Discharge Delay Reason: Follow-Up Date:04/23/2018 11:00 AM Discharge Slot: Final Diagnosis:Fall: L hip fx Placement Information Referral Type:Rehabilitation Hospital Referral ID:[id number] Provider Name:[facility] Address 1:[address] Phone Number: Address 2: Fax Number: [facility]:[place] Selection Factors: State:[place] Patient Contact Information Contact Name:TRAE Relationship:Friend Address: Work Phone: City: [facility] Phone: [facility] Code: Email: Financial Information Financial Class:Medicare Primary Plan Desc:MEDICARE INPATIENT Primary Plan Number:[id number] Secondary Plan Desc:[employer]/MDR SUPPLEMENT Secondary Plan Number:[id number] Assessment Information [facility] CM Progress Note CM Note CM Note Notes: 88yr old male admitted after a fall with L hip fx. He has a Hx ofDM-2, HTN, Hypercholesterolemia, Hyperthyroid, Depression. Patient had surgery today. Therapies to eval for discharge needs. CM to follow. Date Signed: 04/20/2018 01:53 PM Electronically Signed By:Bianca Perez LCSW LACE LACE Length of stay for Answers: 4-6 days current admission Acuity / Level of Answers: Yes Care: Did the patient have an inpatient admission? Comorbidities - select Answers: Coronary Artery Disease all that apply Diabetes (uncontrolled or controlled) Other Notes: Fall- L hip fx # of Emergency department Answers: 1-2 visits in the last 6 months Social determinants Answers: Mental health diagnosis (anxiety, depression, pers onality disorders, etc.) Score: 15 Date Signed: 04/23/2018 11:13 AM Electronically Signed By:RASHID Hernandez [facility] CM Progress Note CM Note CM Note Notes: Patient is POD #1 L RADHA. He is doing well. PT and hospital medicine are recommending [facility] inpatient rehab, so we will await their evaluation. Case Management will follow. Date Signed: 04/21/2018 11:31 AM Electronically Signed By:Bettye Fairbanks RN [facility] CM Progress Note CM Note CM Note Notes: Pt medically stable for d/c to [facility] inpatient rehab. Orders to be obtained via [employer]. Pt agrees to [employer] payment for transport there. Transport set for 11:00. Date Signed: 04/23/2018 11:15 AM Electronically Signed By:RASHID Hernnadez Intervention Information Intervention Type:*Incorrect Registration Date of Service:04/19/2018 01:24 PM Patient Type:Observation Staff Member:RADHA Hernandez Courtney Hours: Discipline: Severity: Comment: Intervention Type:*IM-Signed Date of Service:04/23/2018 11:03 AM Patient Type:Inpatient Staff Member:Talita Blevnis Hours: Discipline: Severity: Comment:
== END 2018-04-23 11:35 | DRG 470 ==
LOC: EDUNIT# → OBSVTOIN 13:04 → F3N 13:27
PROVIDERS: ADMIT Internal Medicine; ATTEND Internal Medicine
PROC: 0SRB04Z Replacement of Left Hip Joint with Ceramic on Polyethylene Synthetic Substitute, Open Approach (ICD-10-PCS; principal; 2018-04-20 12:00)
DX: S72.002A Fracture of unspecified part of neck of left femur, initial encounter for closed fracture (principal); W19.XXXA Unspecified fall, initial encounter; N17.9 Acute kidney failure, unspecified; E11.9 Type 2 diabetes mellitus without complications; I10 Essential (primary) hypertension; E78.00 Pure hypercholesterolemia, unspecified; I44.0 Atrioventricular block, first degree; Y93.H9 Activity, other involving exterior property and land maintenance, building and construction; Y92.017 Garden or yard in single-family (private) house as the place of occurrence of the external cause; Z79.82 Long term (current) use of aspirin; Z23 Encounter for immunization
CPT/HCPCS: 84484-PO; 96374; 97110-GP; 97116-GP; 97161-GP; 97166-GO; 97530-GO; 97530-GP; 97535-GO; G0008; G8978-GP-CJ; G8979-GP-CI; G8980-GP-CJ; G8987-GO-CK; G8988-GO-CI; J0171; J0690; J1170; J1650; J2270; J2405; J2704; J2795

== ENCOUNTER 2018-04-23 11:07 | Inpatient (IN) | payer OTHER, MEDICARE ==
[2018-04-23] MEDS ORDERED: tiZANidine HCL 2 MG TAB PO PRN (12:56)
[2018-04-23] MEDS ORDERED: BISACODYL 10 MG SUPP PR PRN (13:31)
[2018-04-23] MEDS ORDERED: POLYETHYLENE GLYCOL 3350 17 GM PKT PO ONE (15:02)
--- NOTE | 2018-04-23 15:02 | GHP ---
POST ADMISSION PHYSICIAN EVALUATION AND REHABILITATION TREATMENT PLAN DATE OF ADMISSION: 04/23/2018 DATE OF EVALUATION: 04/23/2018 TIME OF EVALUATION: 1320 REFERRING FACILITY: [facility]. REFERRING PHYSICIAN: Ana Sarah NP IMPAIRMENT GROUP: [id number]. DATE OF ONSET: 04/19/2018. CONSULTING PHYSICIANS: He was seen in consultation by the orthopedic service, Dr. Aparicio. REHABILITATION DIAGNOSIS: Debility, status post left femoral neck fracture and total hip arthroplasty. ETIOLOGIC DIAGNOSIS: Unilateral hip fracture. DATE OF SURGERY: 04/20/2018. HISTORY OF PRESENT ILLNESS: This patient had a mechanical fall with no loss of consciousness while preparing his motor home to go duck hunting. He had immediate pain in the left hip, and was able to crawl into the house and call 911. He was brought to [facility], where he was diagnosed with left femoral neck fracture. He was treated with a total hip arthroplasty, anterior approach, on 04/20/2018. Hospital course was complicated by acute kidney injury, which was attributed to use of diuretics, pain management, and constipation. Hospital evaluation revealed a 1st-degree AV block on his EKG, but there were no dysrhythmias seen on telemetry. He had anemia and hyponatremia. He was otherwise medically stabilized and ready for inpatient rehabilitation. STUDIES AND LABS DURING HIS STAY,: He had a steady decline in his hemoglobin and hematocrit. On the day of admission, they were 11.8 and 35.1, and on the day of discharge, they were 10.2 and 30.3. Serum chemistry revealed hyponatremia, which developed during his stay. On the day of admission, sodium was 136. On the day of discharge, it was 132. His acute kidney injury improved. Creatinine improved from 1.4 to 1.2, with GFR increasing from 48 to 57. He had elevated blood sugars in the range of 137-240, but these were not fasting. PRECAUTIONS: He is a fall risk. He has orthopedic anterior hip precautions on the left lower extremity. ACTIVE COMORBIDITIES: He has the active comorbidity of diabetes mellitus. Otherwise, he has no tier 1, tier 2 or tier 3 comorbidities. PAST MEDICAL HISTORY: 1. Diabetes mellitus type 2. 2. Hypertension. 3. Dyslipidemia. 4. Degenerative joint disease of the left knee. 5. Back injury during the [place]. 6. Shingles. 7. Hypothyroidism. 8. Depression. PAST SURGICAL HISTORY: He had a lumbar laminectomy 45 years ago after his service in the [place]. SOCIAL HISTORY: He is . He has 2 sons who live out of state. 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 He is a lifetime nonsmoker and nondrinker. FAMILY HISTORY: Noncontributory. REVIEW OF SYSTEMS: He complains of constipation, and says he has not had a bowel movement since his hospitalization. He has been passing gas. He reports pain is under much better control, and he has been able to stand up and take a few steps. He denies cough or dyspnea. He denies fevers or chills. He denies recent weight change. He denies nausea or vomiting. He has a somewhat reduced appetite, which he attributes to his constipation. He denies urinary problems. Other than hip fracture and chronic left knee pain, he denies any orthopedic symptoms. He is in good spirits. Otherwise, a 10-point review of systems is negative. PHYSICAL EXAMINATION: VITAL SIGNS: Vitals are not yet available in the chart. Today in the hospital, blood pressure was 131/56. Heart rate was 79. Respiratory rate was 18. Oxygenation was 91% on room air. Temperature was 36.6 degrees centigrade. His weight was 99.8 kg, for a body mass index of 29. GENERAL: This is a well-nourished, well-developed, elderly man, appears his chronologic age, cooperative, and in no acute distress. HEENT: Extraocular movements are intact. Pupils are equal, round, reactive to light. Mucous members are moist. Dentition is in good condition. He has an uncrowded airway , Mallampati class 1. NECK: Supple. HEART: There is a regular rate and rhythm. There is a 2/6 systolic murmur audible at the left sternal border. LUNGS: Clear to auscultation bilaterally. ABDOMEN: Soft, nontender, nondistended with normoactive bowel sounds, and no hepatosplenomegaly. EXTREMITIES: There is no cyanosis, clubbing, or edema. NEUROLOGIC: He is alert and oriented x3. Cranial nerves 2-12 are grossly intact. There is no focal weakness. Sensation is intact to light touch. CURRENT LEVEL OF FUNCTION per the preadmission screen. He was on a regular diet. Grooming required contact guard assist. Dressing required total assist. Toileting required contact guard assist for clothing management and voice cues to use grab bar and a raised toilet seat. He was continent of bowel and bladder. Bed mobility required minimal to moderate assist to arise to the edge of bed. Transfers required minimal assist with the bed height raised. He used a front-wheeled walker, bath/shower chair, a sock aid, a raised toilet seat, and a pipeline engineer. Standing balance required contact guard assist. Seated balance was independent. Endurance was fair to good. He ambulated 50 feet with contact guard in a step-to pattern. He was noted to have a rigid posture due to hip pain. On today's exam, there is no significant change from the preadmission screen. IMPRESSION: This is an 88-year-old man who was living independently and independent in all aspects of mobility and activities of daily living, and was driving. He fell while preparing his motor home to drive to [place] to go duck hunting, and he suffered a left femoral neck fracture. He was treated in the hospital with a total hip arthroplasty, and has full weightbearing in the left lower extremity. He has complications of obesity, diabetes, and chronic left knee pain with degenerative joint disease. He has had constipation throughout his hospitalization. He has anemia, and he has hyponatremia. He is otherwise medically stable and appropriate for inpatient rehabilitation. His goal is to complete a rehabilitation stay, and then return home independently with home care services. For a safe discharge, he will need to achieve modified independence for bed mobility, grooming, dressing, bathing, transfers, and ambulation with the least restrictive device on level and unlevel surfaces. He will need to be able to maintain anterior hip precautions. He will have therapy with Physical Therapy and Occupational Therapy for 90 minutes per day for each discipline on 5-7 days a week. His expected duration of stay is 7-10 days. It is anticipated that upon discharge, he will continue to benefit from home health services, including nursing, occupational therapy, and physical therapy. PLAN: 1. Debility, status post femoral neck fracture and ORIF on 04/20/2018. PT and OT to optimize mobility and activities of daily living towards the modified independent level. 2. Pain management was an issue during his hospitalization. He has been discharged on p.r.n. acetaminophen, as well as p.r.n. oxycodone. He will be observed for adequacy of pain control, and medications will be adjusted as needed. 3. Hypertension. Continue amlodipine and benazepril, and monitor his blood pressure. He also has been discharged on furosemide and hydrochlorothiazide. Will check a basic metabolic profile tomorrow morning, and consider whether or not whether dual diuretics are indicated for him. 4. Diabetes mellitus type 2, treated with pioglitazone and linagliptin. He reports history of intolerance to metformin with nausea and vomiting. Will continue the pioglitazone and linagliptin. His most recent hemoglobin A1c in November of this year was 7.3, indicating adequate control. 5. Dyslipidemia. Continue atorvastatin. 6. Heart murmur. 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 There were no dysrhythmias, and no signs of heart failure during his hospitalization or on imaging. However, he is on diuretic therapy, and he was using some oxygen during his hospitalization. Will check a BNP with laboratory studies in the morning. 7. Likely osteoporosis with hip fracture from a ground level fall. Pioglitazone might contribute. Advise bone density scan to evaluate for osteoporosis after his discharge, and consider endocrinology evaluation regarding treatment of osteoporosis, and regarding alternative treatments for his diabetes mellitus, as the pioglitazone may contribute to osteoporosis. 8. Depression. Continue escitalopram. 9. Likely history of insomnia. We will continue zolpidem initially. We will have further discussion regarding potential long-term cognitive affects and regarding potential effect on his balance. 10. Tizanidine has been prescribed on a p.r.n. basis. He was taking this prior to admission. We will have further discussion regarding its indication. 11. Prophylaxis with a hip fracture and a total hip arthroplasty. With reduced mobility, age and obesity, he is at elevated risk for DVT and pulmonary embolus. Will continue enoxaparin 40 mg subcutaneous daily. He was receiving this in the hospital, but was not included in his discharge medications. He likely will need DVT prophylaxis for 4-5 weeks, depending on how his mobility progresses. Consider changing to an oral anticoagulant. As he is concurrently on aspirin, which is appropriate in a diabetic with dyslipidemia and hypertension and elevated risk for coronary artery disease, will also initiate pantoprazole for GI prophylaxis as long as he needs anticoagulation. /[id number]/MODL MTDD
[2018-04-23] MEDS: ACETAMINOPHEN 325 MG TAB PO SCH ×2 (18:23→23:02)
[2018-04-23] MEDS: oxyCODONE IR 5 MG TAB PO PRN (18:24)
[2018-04-23] MEDS: SENNOSIDES/DOCUSATE SODIUM TAB PO SCH (20:55)
[2018-04-23] MEDS: ZOLPIDEM TARTRATE 5 MG TAB PO SCH (20:55)
[2018-04-23] MEDS: ASPIRIN EC 81 MG TAB PO SCH (20:55)
[2018-04-23] MEDS: ATORVASTATIN CALCIUM 40 MG TAB PO SCH (20:55)
[2018-04-24] MEDS: LEVOTHYROXINE 137 MCG TAB PO SCH (05:37)
[2018-04-24] MEDS: oxyCODONE IR 5 MG TAB PO PRN ×4 (05:37→21:30)
[2018-04-24] MEDS: ACETAMINOPHEN 325 MG TAB PO SCH ×3 (06:20→18:15)
[2018-04-24 08:05] LABS: PLATELET COUNT 185 10^3/uL (150-400)
[2018-04-24] MEDS: SENNOSIDES/DOCUSATE SODIUM TAB PO SCH ×2 (08:19→20:24)
[2018-04-24] MEDS: POLYETHYLENE GLYCOL 3350 17 GM PKT PO SCH (08:19)
[2018-04-24] MEDS: PIOGLITAZONE HCL 15 MG TAB PO SCH (08:57)
[2018-04-24] MEDS: ENOXAPARIN 40 MG/0.4 ML SYR SC SCH (08:58)
[2018-04-24] MEDS: FUROSEMIDE 20 MG TAB PO SCH (08:58)
[2018-04-24] MEDS: MULTIVITAMINS 1 EACH TAB PO SCH (08:58)
[2018-04-24] MEDS: ASPIRIN EC 81 MG TAB PO SCH ×2 (08:58→20:24)
[2018-04-24] MEDS: ESCITALOPRAM OXALATE 10 MG TAB PO SCH (08:59)
[2018-04-24] MEDS: PANTOPRAZOLE SODIUM 40 MG TAB PO SCH (08:59)
[2018-04-24] MEDS: amLODIPine BESYLATE 5 MG TAB PO SCH (08:59)
[2018-04-24] MEDS: BENAZEPRIL HCL 20 MG TAB PO SCH (08:59)
[2018-04-24] MEDS ORDERED: HYDROCHLOROTHIAZIDE 25 MG TAB PO SCH (09:00)
--- NOTE | 2018-04-24 10:16 | GDS ---
DISCHARGE SUMMARY: SERVICE: [facility] hospitalist. CONSULT: Orthopedic Surgery, Dr. Aparicio, Dr. Dias. PROCEDURES: 1. 04/20/2018, he had a left total hip arthroplasty by Dr. Dias. 2. Chest x-ray showed mild bronchitis, airway disease, atherosclerotic aorta, no acute changes. 3. Initial hip x-ray showed left femoral neck fracture with slight displacement. H AND P: Please see previously dictated note by Ana Sarah, nurse practitioner. ADMISSION DIAGNOSES: 1. Left hip fracture. 2. Acute kidney injury. 3. Diabetes mellitus type 2. 4. Hypothyroidism. DISCHARGE DIAGNOSES: 1. Left hip fracture, status post left total hip arthroplasty. 2. Acute kidney injury, resolved. 3. Diabetes mellitus type 2. 4. Hypothyroidism. HOSPITAL COURSE: Mr. Grier is an 88-year-old man who came in to the Emergency Department after a fall because of left hip pain. He was evaluated and found to have a slightly displaced left femoral neck fracture. He also had a slightly elevated BUN and creatinine of 31 and 1.4. He was admitted to the hospital for operative treatment. Orthopedic surgery, Dr. Aparicio, evaluated the patient, and he had a total hip arthroplasty with Dr. Dias on April 20. His postoperative course was uncomplicated. On postop day 3, he was discharged to Inpatient Rehab for ongoing physical therapy, occupational therapy and evaluation (he lives independently). Of note, he did have a small avulsion of a bone fragment on a postoperative x-ray. Orthopedics was aware and did not recommend any further evaluation/intervention at this time. His pain was well controlled with medications. His chronic medications are unchanged. DISCHARGE MEDICATIONS: Tylenol scheduled, oxycodone as needed, MiraLax scheduled, senna scheduled. Continue with Actos, amlodipine, Lipitor, benazepril, Lexapro, Lasix, hydrochlorothiazide, Synthroid, Tradjenta, tizanidine as needed, Ambien and a multivitamin. The only change to his chronic medications was aspirin was increased to 81 milligrams twice a day for DVT prophylaxis. DISCHARGE INSTRUCTIONS: He should see Dr. Dias or Dr. Aparicio in 2 weeks for a postoperative evaluation or sooner if needed. He should see his primary care provider, Dr. Vaughn, within 2-3 days of discharge from Inpatient Rehab. /[id number]/MODL MTDD
--- NOTE | 2018-04-24 11:31 | SOAPPROG ---
[facility] Progress Note Assessment/Plan: Assessment: Debility, status post femoral neck fracture and ORIF on 04/20/2018. PT and OT to optimize mobility and activities of daily living towards the modified independent level. Pain management was an issue during his hospitalization. He has been discharged on p.r.n. acetaminophen, as well as p.r.n. oxycodone. * Adequate control at present. Used oxycodone 10 mg x3 in 1st 18 hr on the unit. Hypertension. Continue amlodipine and benazepril, and monitor his blood pressure. * Blood pressure running low and BMP consistent with dehydration on 04/24/2018. Will discontinue hydrochlorothiazide starting 04/25/2018. Continue furosemide. Diabetes mellitus type 2, treated with pioglitazone and linagliptin. He reports history of intolerance to metformin with nausea and vomiting. His most recent hemoglobin A1c in November of this year was 7.3, indicating adequate control. Dyslipidemia. Continue atorvastatin. Heart murmur. 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 There were no dysrhythmias, and no signs of heart failure during his hospitalization or on imaging. However , he is on diuretic therapy, and he was using some oxygen during his hospitalization. * BNP 1660 on 04/24/2018. Consistent with CHF. Continue furosemide as above. Continue to monitor clinically. Consider increasing diuresis. Likely osteoporosis with hip fracture from a ground level fall. Pioglitazone might contribute. Advise bone density scan to evaluate for osteoporosis after his discharge, and consider endocrinology evaluation regarding treatment of osteoporosis, and regarding alternative treatments for his diabetes mellitus, as the pioglitazone may contribute to osteoporosis. Depression. Continue escitalopram. Likely history of insomnia. We will continue zolpidem initially. We will have further discussion regarding potential long-term cognitive affects and regarding potential effect on his balance. Tizanidine has been prescribed on a p.r.n. basis. He was taking this prior to admission, likely for chronic back pain. Prophylaxis with a hip fracture and a total hip arthroplasty. With reduced mobility, age and obesity, he is at elevated risk for DVT and pulmonary embolus. Will continue enoxaparin 40 mg subcutaneous daily. He will need DVT prophylaxis for 4-5 weeks, depending on how his mobility progresses. Discussed oral anticoagulant options with his pharmacy. New oral anticoagulants would cost $154 co-pay; continuing enoxaparin would be $44 co-pay he chooses to continue enoxaparin. As he is concurrently on aspirin, which is appropriate in a diabetic with dyslipidemia and hypertension and elevated risk for coronary artery disease, will also initiate pantoprazole for GI prophylaxis as long as he needs anticoagulation. 04/24/18 13:09 Subjective: Did not sleep well last night. Reports multiple bowel movements and lots of stomach gurgling. Pain is adequately controlled. No cough or dyspnea, no fevers or chills. Objective: Vital Signs Temp Pulse Resp BP Pulse Ox 36.9 C 86 16 106/55 L 89 L 04/24/18 05:15 04/24/18 09:18 04/24/18 05:15 04/24/18 05:15 04/24/18 11:02 Laboratory Results 04/24/18 06:15 04/24/18 06:15 04/23/18 04/24/18 04/25/18 05:59 05:59 05:59 Intake Total 1100 340 Output Total 2125 200 Balance -1025 140 Physical Exam - Physical Exam General Appearance: WD/WN, alert, no apparent distress Respiratory: normal breath sounds, No crackles, No rhonchi, No wheezing Cardiac/Chest: regular rate, rhythm, edema (Trace to 1+ bilateral pretibial), systolic murmur Skin: normal color, warm/dry Neuro/Psych: no motor/sensory deficits, alert, normal mood/affect, oriented x 3 ICD10 Worksheet Patient Problems: Problems Problem Status Onset Fall Acute Hip fracture Acute
--- NOTE | 2018-04-24 11:32 | PDOREHIP ---
Admission [facility] - Admission - 3 Day Assessment Period Admission Date/Day 1: 04/23/18 Day 2: 04/24/18 Day 3: 04/25/18 - Active Diagnoses Comorbidities and Co-existing Conditions at Admission: [address]4921. DM (e.g. diabetic retinopathy, nephropathy, and neuropathy) - Skin Conditions Unhealed Pressure Ulcer (1 or more/Stage 1 or >)-Admission: 0. No # Stage 1 Pressure Ulcers-Admission: 0 # Stage 2 Pressure Ulcers-Admission: 0 # Stage 3 Pressure Ulcers-Admission: 0 # Stage 4 Pressure Ulcers-Admission: 0 # Unstageable Pressure Ulcers (Non-remove Dress)-Admission: 0 # Unstageable Pressure Ulcers (Slough/Eschar)-Admission: 0 # Unstageable Pressure Ulcers (Deep Tissue Injury)-Admission: 0
[2018-04-24] MEDS: ATORVASTATIN CALCIUM 40 MG TAB PO SCH (20:24)
[2018-04-24] MEDS: ZOLPIDEM TARTRATE 5 MG TAB PO SCH (20:24)
[2018-04-25] MEDS: ACETAMINOPHEN 325 MG TAB PO SCH ×5 (00:14→22:59)
[2018-04-25] MEDS: oxyCODONE IR 5 MG TAB PO PRN ×4 (02:57→22:59)
[2018-04-25] MEDS: LEVOTHYROXINE 137 MCG TAB PO SCH (06:18)
[2018-04-25] MEDS: POLYETHYLENE GLYCOL 3350 17 GM PKT PO SCH (08:18)
[2018-04-25] MEDS: PANTOPRAZOLE SODIUM 40 MG TAB PO SCH (08:19)
[2018-04-25] MEDS: amLODIPine BESYLATE 5 MG TAB PO SCH (08:20)
[2018-04-25] MEDS: FUROSEMIDE 20 MG TAB PO SCH (08:23)
[2018-04-25] MEDS: MULTIVITAMINS 1 EACH TAB PO SCH (08:23)
[2018-04-25] MEDS: ESCITALOPRAM OXALATE 10 MG TAB PO SCH (08:24)
[2018-04-25] MEDS: PIOGLITAZONE HCL 15 MG TAB PO SCH (08:24)
[2018-04-25] MEDS: ASPIRIN EC 81 MG TAB PO SCH ×2 (08:24→21:05)
[2018-04-25] MEDS: SENNOSIDES/DOCUSATE SODIUM TAB PO SCH ×2 (08:25→21:08)
[2018-04-25] MEDS: BENAZEPRIL HCL 20 MG TAB PO SCH (08:25)
[2018-04-25] MEDS: ENOXAPARIN 40 MG/0.4 ML SYR SC SCH (09:30)
--- NOTE | 2018-04-25 10:36 | SOAPPROG ---
SOAP Progress Note Assessment/Plan: Assessment: Debility, status post femoral neck fracture and ORIF on 04/20/2018. * Initial functional independence measure 89. Requires minimal assist for bed mobility but is otherwise contact guard for mobility. Ambulated 150 ft with a front wheeled walker and contact guard assist. Negotiated 3 steps with 2 rails and contact guard assist. Did grooming and hygiene standing with standby assist upper body dressing required standby assist and setup; lower body required minimal assist for the sock aid. Shower transfer and bathing were done with standby assist, toilet transfer and toileting were done with standby assist. * Continue PT and OT to optimize mobility and activities of daily living towards the modified independent level. Pain management was an issue during his hospitalization. He has been discharged on p.r.n. acetaminophen, as well as p.r.n. oxycodone. * Adequate control at present. Used oxycodone 10 mg x 4 yesterday, 04/24/2018. He reports at home he typically takes 1/2 of oxycodone pill or 2.5 mg in the morning and at night for chronic back and knee pain. Will change low and of dosing of oxycodone to 2.5 mg. Hypertension. Continue amlodipine and benazepril, and monitor his blood pressure. * Blood pressure running low and BMP consistent with dehydration on 04/24/2018. Discontinued hydrochlorothiazide starting 04/25/2018. Continue furosemide. Diabetes mellitus type 2, treated with pioglitazone and linagliptin. He reports history of intolerance to metformin with nausea and vomiting. His most recent hemoglobin A1c in November of this year was 7.3, indicating adequate control. Dyslipidemia. Continue atorvastatin. Heart murmur. 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 There were no dysrhythmias, and no signs of heart failure during his hospitalization or on imaging. However , he is on diuretic therapy, and he was using some oxygen during his hospitalization. * BNP 1660 on 04/24/2018. Consistent with CHF. Continue furosemide as above. Continue to monitor clinically. Consider increasing diuresis though caution regarding low blood pressure and mild azotemia on labs.. Likely osteoporosis with hip fracture from a ground level fall. Pioglitazone might contribute. Advise bone density scan to evaluate for osteoporosis after his discharge, and consider endocrinology evaluation regarding treatment of osteoporosis, and regarding alternative treatments for his diabetes mellitus, as the pioglitazone may contribute to osteoporosis. Depression. Continue escitalopram. Likely history of insomnia. We will continue zolpidem initially. We will have further discussion regarding potential long-term cognitive affects and regarding potential effect on his balance. Tizanidine has been prescribed on a p.r.n. basis. He was taking this prior to admission, likely for chronic back pain. Prophylaxis with a hip fracture and a total hip arthroplasty. With reduced mobility, age and obesity, he is at elevated risk for DVT and pulmonary embolus. Will continue enoxaparin 40 mg subcutaneous daily. He will need DVT prophylaxis for 4-5 weeks, depending on how his mobility progresses. Discussed oral anticoagulant options with his pharmacy. New oral anticoagulants would cost $154 co-pay; continuing enoxaparin would be $44 co-pay he chooses to continue enoxaparin. As he is concurrently on aspirin, which is appropriate in a diabetic with dyslipidemia and hypertension and elevated risk for coronary artery disease, will also initiate pantoprazole for GI prophylaxis as long as he needs anticoagulation. DISPOSITION: Attended staffing, 15 min. Discussed with case management, nursing, dietitian, PT, O T. Plans to return home alone. Has help from friends and neighbors. Has 2 large dogs currently being cared for by friends. Needs to have a high level of independence. Tentative discharge date set for 2017. Will have home PT and OT. 04/25/18 11:26 Subjective: No complaints. Slept well. Pain is improved. No cough or dyspnea, no fevers or chills. Objective: Vital Signs Temp Pulse Resp BP Pulse Ox 36.6 C 63 17 104/67 94 04/25/18 06:33 04/25/18 06:33 04/25/18 06:33 04/25/18 08:20 04/25/18 06:33 Laboratory Results 04/24/18 06:15 04/24/18 06:15 04/24/18 04/25/18 04/26/18 05:59 05:59 05:59 Intake Total 1100 1060 1036 Output Total 1248 1950 Balance -1024 -695 1036 - Time Spent With Patient Time Spent With Patient: Greater than 35 min floor time today, including more than 50% of time in coordination of care during staffing meeting, and counseling patient. Physical Exam - Physical Exam General Appearance: WD/WN, alert, no apparent distress Respiratory: normal breath sounds, No crackles, No rhonchi, No wheezing Cardiac/Chest: regular rate, rhythm, No edema, No diastolic murmur, No systolic murmur Skin: normal color, warm/dry Neuro/Psych: no motor/sensory deficits, alert, normal mood/affect, oriented x 3 ICD10 Worksheet Patient Problems: Problems Problem Status Onset Fall Acute Hip fracture Acute
[2018-04-25] MEDS: ZOLPIDEM TARTRATE 5 MG TAB PO SCH (21:05)
[2018-04-25] MEDS: ATORVASTATIN CALCIUM 40 MG TAB PO SCH (21:05)
[2018-04-26] MEDS: LEVOTHYROXINE 137 MCG TAB PO SCH (05:25)
[2018-04-26] MEDS: ACETAMINOPHEN 325 MG TAB PO SCH ×3 (05:28→17:49)
[2018-04-26] MEDS: oxyCODONE IR 5 MG TAB PO PRN ×2 (08:38→20:08)
[2018-04-26] MEDS: POLYETHYLENE GLYCOL 3350 17 GM PKT PO SCH (08:39)
[2018-04-26] MEDS: SENNOSIDES/DOCUSATE SODIUM TAB PO SCH ×2 (08:39→20:03)
[2018-04-26] MEDS: PANTOPRAZOLE SODIUM 40 MG TAB PO SCH (08:40)
[2018-04-26] MEDS: FUROSEMIDE 20 MG TAB PO SCH (08:40)
[2018-04-26] MEDS: BENAZEPRIL HCL 20 MG TAB PO SCH (08:40)
[2018-04-26] MEDS: ESCITALOPRAM OXALATE 10 MG TAB PO SCH (08:40)
[2018-04-26] MEDS: MULTIVITAMINS 1 EACH TAB PO SCH (08:40)
[2018-04-26] MEDS: amLODIPine BESYLATE 5 MG TAB PO SCH (08:40)
[2018-04-26] MEDS: ASPIRIN EC 81 MG TAB PO SCH ×2 (08:40→20:03)
[2018-04-26] MEDS: PIOGLITAZONE HCL 15 MG TAB PO SCH (08:40)
[2018-04-26] MEDS: ENOXAPARIN 40 MG/0.4 ML SYR SC SCH (08:40)
--- NOTE | 2018-04-26 13:29 | HOSPPROG ---
Hospitalist Progress Note Assessment/Plan: Debility, status post femoral neck fracture and ORIF on 04/20/2018. * Initial functional independence measure 89. Requires minimal assist for bed mobility but is otherwise contact guard for mobility. Ambulated 150 ft with a front wheeled walker and contact guard assist. Negotiated 3 steps with 2 rails and contact guard assist. Did grooming and hygiene standing with standby assist upper body dressing required standby assist and setup; lower body required minimal assist for the sock aid. Shower transfer and bathing were done with standby assist, toilet transfer and toileting were done with standby assist. * Continue PT and OT to optimize mobility and activities of daily living towards the modified independent level. Pain management was an issue during his hospitalization. He has been discharged on p.r.n. acetaminophen, as well as p.r.n. oxycodone. * Adequate control at present. Used oxycodone 10 mg x 4 yesterday, 04/24/2018. He reports at home he typically takes 1/2 of oxycodone pill or 2.5 mg in the morning and at night for chronic back and knee pain. Will change low and of dosing of oxycodone to 2.5 mg. Hypertension. Continue amlodipine and benazepril, and monitor his blood pressure. * Blood pressure running low and BMP consistent with dehydration on 04/24/2018. Discontinued hydrochlorothiazide starting 04/25/2018. Continue furosemide. Diabetes mellitus type 2, treated with pioglitazone and linagliptin. He reports history of intolerance to metformin with nausea and vomiting. His most recent hemoglobin A1c in November of this year was 7.3, indicating adequate control. Dyslipidemia. Continue atorvastatin. Heart murmur. 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 There were no dysrhythmias, and no signs of heart failure during his hospitalization or on imaging. However , he is on diuretic therapy, and he was using some oxygen during his hospitalization. * BNP 1660 on 04/24/2018. Consistent with CHF. Continue furosemide as above. Continue to monitor clinically. Consider increasing diuresis though caution regarding low blood pressure and mild azotemia on labs.. Likely osteoporosis with hip fracture from a ground level fall. Pioglitazone might contribute. Advise bone density scan to evaluate for osteoporosis after his discharge, and consider endocrinology evaluation regarding treatment of osteoporosis, and regarding alternative treatments for his diabetes mellitus, as the pioglitazone may contribute to osteoporosis. Depression. Continue escitalopram. Likely history of insomnia. We will continue zolpidem initially. We will have further discussion regarding potential long-term cognitive affects and regarding potential effect on his balance. Tizanidine has been prescribed on a p.r.n. basis. He was taking this prior to admission, likely for chronic back pain. Prophylaxis with a hip fracture and a total hip arthroplasty. With reduced mobility, age and obesity, he is at elevated risk for DVT and pulmonary embolus. Will continue enoxaparin 40 mg subcutaneous daily. He will need DVT prophylaxis for 4-5 weeks, depending on how his mobility progresses. Discussed oral anticoagulant options with his pharmacy. New oral anticoagulants would cost $154 co-pay; continuing enoxaparin would be $44 co-pay he chooses to continue enoxaparin. As he is concurrently on aspirin, which is appropriate in a diabetic with dyslipidemia and hypertension and elevated risk for coronary artery disease, will also initiate pantoprazole for GI prophylaxis as long as he needs anticoagulation. Subjective: no new complaints. eating. having BM. pain well controlled Objective: Vital Signs Temp Pulse Resp BP Pulse Ox 36.6 C 72 18 116/57 L 97 04/26/18 08:00 04/26/18 09:50 04/26/18 09:50 04/26/18 09:50 04/26/18 09:50 Laboratory Results 04/24/18 06:15 04/24/18 06:15 04/25/18 04/26/18 04/27/18 05:59 05:59 05:59 Intake Total 1060 1886 240 Output Total 4126 2150 Balance -890 -264 240 - Physical Exam Constitutional: no apparent distress, appears nourished, not in pain Eyes: anicteric sclera Ears, Nose, Mouth, Throat: moist mucous membranes Cardiovascular: regular rate and rhythym, systolic murmur, edema (trace) Respiratory: no respiratory distress, no rales or rhonchi, clear to auscultation Skin: warm Neurologic: AAOx3 Psychiatric: interacting appropriately, not anxious, not encephalopathic, thought process linear ICD10 Worksheet Patient Problems: Problems Problem Status Onset Fall Acute Hip fracture Acute
[2018-04-26] MEDS: ATORVASTATIN CALCIUM 40 MG TAB PO SCH (20:03)
[2018-04-26] MEDS: ZOLPIDEM TARTRATE 5 MG TAB PO SCH (20:03)
[2018-04-27] MEDS: ACETAMINOPHEN 325 MG TAB PO SCH ×5 (00:12→23:05)
[2018-04-27] MEDS: LEVOTHYROXINE 137 MCG TAB PO SCH (05:21)
[2018-04-27] MEDS: oxyCODONE IR 5 MG TAB PO PRN (07:44)
[2018-04-27] MEDS: ENOXAPARIN 40 MG/0.4 ML SYR SC SCH (08:55)
[2018-04-27] MEDS: POLYETHYLENE GLYCOL 3350 17 GM PKT PO SCH (08:55)
[2018-04-27] MEDS: FUROSEMIDE 20 MG TAB PO SCH (08:56)
[2018-04-27] MEDS: ESCITALOPRAM OXALATE 10 MG TAB PO SCH (08:56)
[2018-04-27] MEDS: MULTIVITAMINS 1 EACH TAB PO SCH (08:56)
[2018-04-27] MEDS: ASPIRIN EC 81 MG TAB PO SCH ×2 (08:56→21:07)
[2018-04-27] MEDS: amLODIPine BESYLATE 5 MG TAB PO SCH (08:56)
[2018-04-27] MEDS: PIOGLITAZONE HCL 15 MG TAB PO SCH (08:56)
[2018-04-27] MEDS: PANTOPRAZOLE SODIUM 40 MG TAB PO SCH (08:56)
[2018-04-27] MEDS: SENNOSIDES/DOCUSATE SODIUM TAB PO SCH ×2 (08:56→21:08)
[2018-04-27] MEDS: BENAZEPRIL HCL 20 MG TAB PO SCH (08:56)
--- NOTE | 2018-04-27 10:37 | HOSPPROG ---
Hospitalist Progress Note Assessment/Plan: Debility, status post femoral neck fracture and ORIF on 04/20/2018. * Initial functional independence measure 89. Requires minimal assist for bed mobility but is otherwise contact guard for mobility. Ambulated 150 ft with a front wheeled walker and contact guard assist. Negotiated 3 steps with 2 rails and contact guard assist. Did grooming and hygiene standing with standby assist upper body dressing required standby assist and setup; lower body required minimal assist for the sock aid. Shower transfer and bathing were done with standby assist, toilet transfer and toileting were done with standby assist. * Continue PT and OT to optimize mobility and activities of daily living towards the modified independent level. Pain management was an issue during his hospitalization. He has been discharged on p.r.n. acetaminophen, as well as p.r.n. oxycodone. * Adequate control at present. Used oxycodone 10 mg x 4 yesterday, 04/24/2018. He reports at home he typically takes 1/2 of oxycodone pill or 2.5 mg in the morning and at night for chronic back and knee pain. Will change low and of dosing of oxycodone to 2.5 mg. Hypertension. Continue amlodipine and benazepril, and monitor his blood pressure. * Blood pressure running low and BMP consistent with dehydration on 04/24/2018. Discontinued hydrochlorothiazide starting 04/25/2018. Continue furosemide. Diabetes mellitus type 2, treated with pioglitazone and linagliptin. He reports history of intolerance to metformin with nausea and vomiting. His most recent hemoglobin A1c in November of this year was 7.3, indicating adequate control. Dyslipidemia. Continue atorvastatin. Heart murmur. 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 There were no dysrhythmias, and no signs of heart failure during his hospitalization or on imaging. However , he is on diuretic therapy, and he was using some oxygen during his hospitalization. * BNP 1660 on 04/24/2018. Consistent with CHF. Continue furosemide as above. Continue to monitor clinically. Consider increasing diuresis though caution regarding low blood pressure and mild azotemia on labs.. Likely osteoporosis with hip fracture from a ground level fall. Pioglitazone might contribute. Advise bone density scan to evaluate for osteoporosis after his discharge, and consider endocrinology evaluation regarding treatment of osteoporosis, and regarding alternative treatments for his diabetes mellitus, as the pioglitazone may contribute to osteoporosis. Depression. Continue escitalopram. Likely history of insomnia. We will continue zolpidem initially. We will have further discussion regarding potential long-term cognitive affects and regarding potential effect on his balance. Tizanidine has been prescribed on a p.r.n. basis. He was taking this prior to admission, likely for chronic back pain. Prophylaxis with a hip fracture and a total hip arthroplasty. With reduced mobility, age and obesity, he is at elevated risk for DVT and pulmonary embolus. Will continue enoxaparin 40 mg subcutaneous daily. He will need DVT prophylaxis for 4-5 weeks, depending on how his mobility progresses. Discussed oral anticoagulant options with his pharmacy. New oral anticoagulants would cost $154 co-pay; continuing enoxaparin would be $44 co-pay he chooses to continue enoxaparin. As he is concurrently on aspirin, which is appropriate in a diabetic with dyslipidemia and hypertension and elevated risk for coronary artery disease, will also initiate pantoprazole for GI prophylaxis as long as he needs anticoagulation. Subjective: didn't sleep that well but no new complaints Objective: Vital Signs Temp Pulse Resp BP Pulse Ox 36.5 C 63 16 122/62 H 93 04/27/18 05:24 04/27/18 05:24 04/27/18 05:24 04/27/18 08:56 04/27/18 05:24 Laboratory Results 04/24/18 06:15 04/24/18 06:15 04/26/18 04/27/18 04/28/18 05:59 05:59 05:59 Intake Total 1886 920 Output Total 2150 1090 300 Balance -264 -170 -300 - Physical Exam Constitutional: no apparent distress, appears nourished, not in pain Eyes: anicteric sclera, EOMI Respiratory: no respiratory distress Skin: warm Neurologic: AAOx3 Psychiatric: interacting appropriately, not anxious, not encephalopathic, thought process linear ICD10 Worksheet Patient Problems: Problems Problem Status Onset Fall Acute Hip fracture Acute
[2018-04-27] MEDS: ATORVASTATIN CALCIUM 40 MG TAB PO SCH (21:07)
[2018-04-27] MEDS: ZOLPIDEM TARTRATE 5 MG TAB PO SCH (21:07)
[2018-04-28] MEDS: oxyCODONE IR 5 MG TAB PO PRN ×4 (01:34→21:06)
[2018-04-28] MEDS: ACETAMINOPHEN 325 MG TAB PO SCH ×4 (06:21→23:17)
[2018-04-28] MEDS: LEVOTHYROXINE 137 MCG TAB PO SCH (06:21)
[2018-04-28] MEDS: BENAZEPRIL HCL 20 MG TAB PO SCH (08:59)
[2018-04-28] MEDS: PIOGLITAZONE HCL 15 MG TAB PO SCH (09:00)
[2018-04-28] MEDS: amLODIPine BESYLATE 5 MG TAB PO SCH (09:00)
[2018-04-28] MEDS: PANTOPRAZOLE SODIUM 40 MG TAB PO SCH (09:00)
[2018-04-28] MEDS: ASPIRIN EC 81 MG TAB PO SCH ×2 (09:00→22:03)
[2018-04-28] MEDS: FUROSEMIDE 20 MG TAB PO SCH (09:00)
[2018-04-28] MEDS: ESCITALOPRAM OXALATE 10 MG TAB PO SCH (09:00)
[2018-04-28] MEDS: MULTIVITAMINS 1 EACH TAB PO SCH (09:00)
[2018-04-28] MEDS: SENNOSIDES/DOCUSATE SODIUM TAB PO SCH ×2 (09:01→21:02)
[2018-04-28] MEDS: ENOXAPARIN 40 MG/0.4 ML SYR SC SCH (09:01)
[2018-04-28] MEDS: POLYETHYLENE GLYCOL 3350 17 GM PKT PO SCH (09:01)
--- NOTE | 2018-04-28 11:42 | SOAPPROG ---
SOAP Progress Note Assessment/Plan: Assessment: Debility, status post femoral neck fracture and ORIF on 04/20/2018. * Initial functional independence measure 89 on 04/25/2018. Requires minimal assist for bed mobility but is otherwise contact guard for mobility. Ambulated 150 ft with a front wheeled walker and contact guard assist. Negotiated 3 steps with 2 rails and contact guard assist. Did grooming and hygiene standing with standby assist upper body dressing required standby assist and setup; lower body required minimal assist for the sock aid. Shower transfer and bathing were done with standby assist, toilet transfer and toileting were done with standby assist. * Continue PT and OT to optimize mobility and activities of daily living towards the modified independent level. Pain management was an issue during his hospitalization. He has been discharged on p.r.n. acetaminophen, as well as p.r.n. oxycodone. * Adequate control at present. Used oxycodone 10 mg x 4 yesterday, 04/24/2018. He reports at home he typically takes 1/2 of oxycodone pill or 2.5 mg in the morning and at night for chronic back and knee pain. Will change low and of dosing of oxycodone to 2.5 mg. * Discussed issues of lumbar pain overnight. Agreed to continue medications as currently ordered. Suggested trial of oxycodone at bedtime and to repeat oxycodone if he awakens at night. Continue to monitor. Hypertension. Continue amlodipine and benazepril, and monitor his blood pressure. * Blood pressure running low and BMP consistent with dehydration on 04/24/2018. Discontinued hydrochlorothiazide starting 04/25/2018. Continue furosemide. * Adequate control per Diabetes mellitus type 2, treated with pioglitazone and linagliptin. He reports history of intolerance to metformin with nausea and vomiting. His most recent hemoglobin A1c in November of this year was 7.3, indicating adequate control. Dyslipidemia. Continue atorvastatin. Heart murmur. 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 There were no dysrhythmias, and no signs of heart failure during his hospitalization or on imaging. However , he is on diuretic therapy, and he was using some oxygen during his hospitalization. * BNP 1660 on 04/24/2018. Consistent with CHF. Continue furosemide as above. Continue to monitor clinically. Consider increasing diuresis though caution regarding low blood pressure and mild azotemia on labs.. Likely osteoporosis with hip fracture from a ground level fall. Pioglitazone might contribute. Advise bone density scan to evaluate for osteoporosis after his discharge, and consider endocrinology evaluation regarding treatment of osteoporosis, and regarding alternative treatments for his diabetes mellitus, as the pioglitazone may contribute to osteoporosis. Depression. Continue escitalopram. History of insomnia. Continue zolpidem initially. He reports he has been taking it for more than a year, since his . Tizanidine has been prescribed on a p.r.n. basis. He was taking this prior to admission, likely for chronic back pain. Prophylaxis with a hip fracture and a total hip arthroplasty. With reduced mobility, age and obesity, he is at elevated risk for DVT and pulmonary embolus. Will continue enoxaparin 40 mg subcutaneous daily. He will need DVT prophylaxis for 4-5 weeks, depending on how his mobility progresses. Discussed oral anticoagulant options with his pharmacy. New oral anticoagulants would cost $154 co-pay; continuing enoxaparin would be $44 co-pay he chooses to continue enoxaparin. As he is concurrently on aspirin, which is appropriate in a diabetic with dyslipidemia and hypertension and elevated risk for coronary artery disease, will also initiate pantoprazole for GI prophylaxis as long as he needs anticoagulation. DISPOSITION: Plans to return home alone. Has help from friends and neighbors. Has 2 large dogs currently being cared for by friends. Needs to have a high level of independence. Tentative discharge date set for 04/30/2018. Will have home PT and OT. 04/28/18 11:38 Subjective: Awoke with pain overnight. Also had some difficulty attaining sleep. He thinks he laid too long in 1 position. Pain is in his lumbar area. He gets occasional radiation down the left leg but this was not what awakened him last night. Otherwise doing well. No fevers or chills, no cough or dyspnea. Bowels moving. Objective: Vital Signs Temp Pulse Resp BP Pulse Ox 36.6 C 67 16 120/50 L 95 04/28/18 06:44 04/28/18 06:44 04/28/18 06:44 04/28/18 09:00 04/28/18 06:44 Laboratory Results 04/24/18 06:15 04/24/18 06:15 04/27/18 04/28/18 04/29/18 05:59 05:59 05:59 Intake Total 920 1580 400 Output Total 1090 2049 Balance -170 -002 400 Physical Exam - Physical Exam General Appearance: WD/WN, alert, no apparent distress Respiratory: normal breath sounds, No crackles, No rhonchi, No wheezing Cardiac/Chest: regular rate, rhythm, edema (Trace bilateral pretibial.) Skin: normal color Neuro/Psych: no motor/sensory deficits, alert, normal mood/affect, oriented x 3 ICD10 Worksheet Patient Problems: Problems Problem Status Onset Fall Acute Hip fracture Acute
[2018-04-28] MEDS: ATORVASTATIN CALCIUM 40 MG TAB PO SCH (21:02)
[2018-04-28] MEDS: ZOLPIDEM TARTRATE 5 MG TAB PO SCH (21:02)
[2018-04-29] MEDS: oxyCODONE IR 5 MG TAB PO PRN ×6 (00:12→22:07)
[2018-04-29] MEDS: ACETAMINOPHEN 325 MG TAB PO SCH ×4 (05:17→23:37)
[2018-04-29] MEDS: LEVOTHYROXINE 137 MCG TAB PO SCH (05:17)
[2018-04-29] MEDS: amLODIPine BESYLATE 5 MG TAB PO SCH (08:34)
[2018-04-29] MEDS: FUROSEMIDE 20 MG TAB PO SCH (08:34)
[2018-04-29] MEDS: ESCITALOPRAM OXALATE 10 MG TAB PO SCH (08:35)
[2018-04-29] MEDS: PANTOPRAZOLE SODIUM 40 MG TAB PO SCH (08:36)
[2018-04-29] MEDS: SENNOSIDES/DOCUSATE SODIUM TAB PO SCH ×2 (08:36→21:15)
[2018-04-29] MEDS: POLYETHYLENE GLYCOL 3350 17 GM PKT PO SCH (08:36)
[2018-04-29] MEDS: MULTIVITAMINS 1 EACH TAB PO SCH (08:36)
[2018-04-29] MEDS: ENOXAPARIN 40 MG/0.4 ML SYR SC SCH (08:36)
[2018-04-29] MEDS: PIOGLITAZONE HCL 15 MG TAB PO SCH (08:37)
[2018-04-29] MEDS: BENAZEPRIL HCL 20 MG TAB PO SCH (08:37)
[2018-04-29] MEDS: ASPIRIN EC 81 MG TAB PO SCH ×2 (08:37→21:15)
--- NOTE | 2018-04-29 13:55 | SOAPPROG ---
SOAP Progress Note Assessment/Plan: Assessment: Debility, status post femoral neck fracture and ORIF on 04/20/2018. * Initial functional independence measure 89 on 04/25/2018. Requires minimal assist for bed mobility but is otherwise contact guard for mobility. Ambulated 150 ft with a front wheeled walker and contact guard assist. Negotiated 3 steps with 2 rails and contact guard assist. Did grooming and hygiene standing with standby assist upper body dressing required standby assist and setup; lower body required minimal assist for the sock aid. Shower transfer and bathing were done with standby assist, toilet transfer and toileting were done with standby assist. * Independent in his room and progressing to independent in room and on unit 24 hr today, 04/29/2018. * Continue PT and OT to optimize mobility and activities of daily living towards the modified independent level. Pain management was an issue during his hospitalization. He has been discharged on p.r.n. acetaminophen, as well as p.r.n. oxycodone. * Adequate control at present. Used oxycodone 10 mg x 4 yesterday, 04/24/2018. He reports at home he typically takes 1/2 of oxycodone pill or 2.5 mg in the morning and at night for chronic back and knee pain. Will change low and of dosing of oxycodone to 2.5 mg. * Using up to 30 mg of oxycodone per day over the last 24 hr. * Discussed issues of lumbar pain overnight. Agreed to continue medications as currently ordered. Suggested trial of oxycodone at bedtime and to repeat oxycodone if he awakens at night. Continue to monitor. Hypertension. Continue amlodipine and benazepril, and monitor his blood pressure. * Blood pressure running low and BMP consistent with dehydration on 04/24/2018. Discontinued hydrochlorothiazide starting 04/25/2018. Continue furosemide. * Adequate control. Diabetes mellitus type 2, treated with pioglitazone and linagliptin. He reports history of intolerance to metformin with nausea and vomiting. His most recent hemoglobin A1c in November of this year was 7.3, indicating adequate control. Dyslipidemia. Continue atorvastatin. Heart murmur. 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 There were no dysrhythmias, and no signs of heart failure during his hospitalization or on imaging. However , he is on diuretic therapy, and he was using some oxygen during his hospitalization. * BNP 1660 on 04/24/2018. Consistent with CHF. Continue furosemide as above. Continue to monitor clinically. Consider increasing diuresis though caution regarding low blood pressure and mild azotemia on labs. Likely osteoporosis with hip fracture from a ground level fall. Pioglitazone might contribute. Advise bone density scan to evaluate for osteoporosis after his discharge, and consider endocrinology evaluation regarding treatment of osteoporosis, and regarding alternative treatments for his diabetes mellitus, as the pioglitazone may contribute to osteoporosis. Depression. Continue escitalopram. History of insomnia. Continue zolpidem initially. He reports he has been taking it for more than a year, since his . Tizanidine has been prescribed on a p.r.n. basis. He was taking this prior to admission, likely for chronic back pain. Prophylaxis with a hip fracture and a total hip arthroplasty. With reduced mobility, age and obesity, he is at elevated risk for DVT and pulmonary embolus. Will continue enoxaparin 40 mg subcutaneous daily. He will need DVT prophylaxis for 4-5 weeks, depending on how his mobility progresses. Discussed oral anticoagulant options with his pharmacy. New oral anticoagulants would cost $154 co-pay; continuing enoxaparin would be $44 co-pay he chooses to continue enoxaparin. As he is concurrently on aspirin, which is appropriate in a diabetic with dyslipidemia and hypertension and elevated risk for coronary artery disease, will also initiate pantoprazole for GI prophylaxis as long as he needs anticoagulation. DISPOSITION: Plans to return home alone. Has help from friends and neighbors. Has 2 large dogs currently being cared for by friends. Needs to have a high level of independence. Tentative discharge date set for 04/30/2018. Will have home PT and OT. 04/29/18 13:26 Subjective: Slept well. Back feels better. Looking for to going home tomorrow. Objective: Vital Signs Temp Pulse Resp BP Pulse Ox 36.9 C 71 18 110/50 L 92 04/29/18 05:18 04/29/18 05:18 04/29/18 05:18 04/29/18 08:34 04/29/18 05:18 Laboratory Results 04/24/18 06:15 04/24/18 06:15 04/28/18 04/29/18 04/30/18 05:59 05:59 05:59 Intake Total 1580 2030 480 Output Total 2049 1100 250 Balance -470 930 230 Physical Exam - Physical Exam General Appearance: WD/WN, alert, no apparent distress Respiratory: No respiratory distress, No accessory muscle use Skin: normal color, warm/dry Neuro/Psych: no motor/sensory deficits, alert, normal mood/affect, oriented x 3 ICD10 Worksheet Patient Problems: Problems Problem Status Onset Fall Acute Hip fracture Acute
[2018-04-29] MEDS: ZOLPIDEM TARTRATE 5 MG TAB PO SCH (21:14)
[2018-04-29] MEDS: ATORVASTATIN CALCIUM 40 MG TAB PO SCH (21:15)
[2018-04-29] MEDS ORDERED: oxyCODONE IR 5 MG TAB PO PRN (23:34)
[2018-04-30] MEDS: oxyCODONE IR 5 MG TAB PO PRN ×2 (02:12→12:31)
[2018-04-30] MEDS: ACETAMINOPHEN 325 MG TAB PO SCH ×2 (05:02→12:32)
[2018-04-30] MEDS: LEVOTHYROXINE 137 MCG TAB PO SCH (05:02)
[2018-04-30] MEDS: ENOXAPARIN 40 MG/0.4 ML SYR SC SCH (07:55)
[2018-04-30] MEDS: ASPIRIN EC 81 MG TAB PO SCH (07:56)
[2018-04-30] MEDS: PANTOPRAZOLE SODIUM 40 MG TAB PO SCH (07:56)
[2018-04-30] MEDS: POLYETHYLENE GLYCOL 3350 17 GM PKT PO SCH (07:56)
[2018-04-30] MEDS: ESCITALOPRAM OXALATE 10 MG TAB PO SCH (07:56)
[2018-04-30] MEDS: SENNOSIDES/DOCUSATE SODIUM TAB PO SCH (07:57)
[2018-04-30] MEDS: FUROSEMIDE 20 MG TAB PO SCH (07:57)
[2018-04-30] MEDS: PIOGLITAZONE HCL 15 MG TAB PO SCH (07:57)
[2018-04-30] MEDS: BENAZEPRIL HCL 20 MG TAB PO SCH (07:58)
[2018-04-30] MEDS: MULTIVITAMINS 1 EACH TAB PO SCH (07:58)
[2018-04-30] MEDS: amLODIPine BESYLATE 5 MG TAB PO SCH (08:17)
[2018-04-30 08:20] VITALS: BP 121/70
--- NOTE | 2018-04-30 15:28 | GDS ---
ADMISSION DIAGNOSIS: Left femoral neck fracture status post total hip arthroplasty. DISCHARGE DIAGNOSIS: Left femoral neck fracture status post total hip arthroplasty. OTHER DISCHARGE DIAGNOSES: 1. Pain management. 2. Hypertension. 3. Heart murmur and possible congestive heart failure. 4. Likely osteoporosis. 5. History of insomnia. 6. Chronic back pain. COMPLICATIONS: There were none. PROCEDURES: There were none. CONSULTATIONS: There were none. HISTORY AND HOSPITAL COURSE: This patient was [facility] rehabilitation from [facility]. He had suffered a fall and a left femoral neck fracture, which was treated with a total hip arthroplasty. He had an uncomplicated hospital course. He did very well in inpatient rehabilitation. On 04/25/2018, his Functional [place] Measure was 89, which is consistent with assisted-living level of function. He was requiring minimal assist for bed mobility, but otherwise needed only contact guard for mobility. He was able to ambulate 150 feet with a front-wheeled walker and contact guard assist. He could climb and descend 3 steps with 2 rails and contact guard assist. Activities of daily living generally required standby assist, though he required minimal assist for a sock aid for lower body dressing. On 04/29/2018, he progressed to independent in his room and then independent on the unit 24 hours a day. There were issues with pain management, both from his hip fracture and repair and from chronic low back pain. He used up to 30 mg of oxycodone per day and had adequate pain control to allow his level of function. He has hypertension and was treated with amlodipine, benazepril, hydrochlorothiazide, and furosemide. He had low blood pressures during his stay , and hydrochlorothiazide was discontinued on 04/25/2018. There was a heart murmur noted. EKG in the hospital had noted first-degree AV block. BNP was tested and was at 1660 on 04/24/2018, consistent with congestive heart failure. Furosemide was continued, and he did well. He required some oxygen initially during his stay, but not after 04/25/2018. It was considered likely that he had osteoporosis due to hip fracture from a ground-level fall. This may be an adverse effect of pioglitazone. His blood sugars were otherwise well controlled, and there was a recent hemoglobin A1c of 7.3 in November of this year, so medications were not changed, but it was recommended that he have followup evaluation with an healthcare consultant regarding bone density, fracture risk, and the optimal management of his diabetes. He had a history of depression and insomnia following the of his approximately a year ago. He was continued on escitalopram. He was taking zolpidem when admitted to the hospital. He was counseled that zolpidem can increase fall risk and is related to memory loss when used chronically. He was encouraged to taper and discontinue zolpidem if possible after his discharge. Regarding DVT risk following hip fracture and total hip arthroplasty, he should continue anticoagulation for 4 to 5 weeks. Option of new oral anticoagulants was discussed with his pharmacy. He had a co-pay of 154 dollars for these medications versus a 44 dollar co-pay to continue enoxaparin. He chose to continue enoxaparin. As he was also on aspirin, he was placed on GI prophylaxis with pantoprazole. This can be discontinued when he no longer needs the enoxaparin. DISCHARGE PLAN: Condition upon discharge is good. ACTIVITY: Ad chalino, but he should not be driving until he is cleared by Orthopedic Surgery and mostly not requiring opiate medications. DIET: Regular. DISCHARGE MEDICATIONS: 1. Acetaminophen 650 mg p.o. q.6 hours. 2. Amlodipine 5 mg p.o. daily. 3. Aspirin 81 mg p.o. daily. 4. Atorvastatin 40 mg p.o. at bedtime. 5. Benazepril 20 mg p.o. daily. 6. Enoxaparin 40 mg subcutaneous daily for 17 more days. 7. Escitalopram 10 mg p.o. daily. 8. Furosemide 20 mg p.o. daily. 9. Levothyroxine 137 mcg p.o. daily. 10. Linagliptin 5 mg p.o. daily. 11. Multivitamin p.o. daily. 12. Oxycodone 2.5 to 10 mg p.o. q.4 hours p.r.n. 13. Pantoprazole 40 mg p.o. daily for 17 more days. 14. Pioglitazone 30 mg p.o. daily. 15. Polyethylene glycol 17 g p.o. daily. 16. Senna 1 to 2 tabs p.o. daily. 17. Tizanidine 2 to 4 mg p.o. daily p.r.n. 18. Zolpidem 10 mg p.o. at bedtime. ISSUES TO BE ADDRESSED AT FOLLOWUP: 1. Mobility and activities of daily living. He will continue to have physical and occupational therapy in the home. He has considerable help from friends and neighbors to take care of IADLs and to help him care for his dogs. He can follow up with his primary care provider. 2. Postsurgical care. He had a sterile dressing over his incision, which was not disturbed. He will have staple removal and further assessment when he follows up with orthopedic surgeon, Dr. Dias. 3. Possible osteoporosis and optimal management of diabetes mellitus. He was instructed to seek evaluation by an healthcare consultant. 4. Possible CHF with elevated BNP. He can follow up with his primary care provider and consider referral to a pipe fitter welding. 5. Hypertension was well controlled without hydrochlorothiazide. He can follow up with his primary care provider. 6. Chronic knee pain with knee DJD. He was intending to have a knee replacement prior to his fall, and he plans to have a knee replacement once he recovers from the fall and hip fracture. Greater than 30 minutes was spent on this discharge summary, including medication reconciliation, coordination of care, and counseling patient. /[id number]/MODL MTDD
== END 2018-04-30 13:04 | disposition home health service (06) | DRG 560 ==
LOC: BREH 11:07
PROVIDERS: ADMIT Internal Medicine; ATTEND Internal Medicine
PROC: F07Z8ZZ Transfer Training Treatment (ICD-10-PCS; principal; 2018-04-23)
PROC: F07Z9ZZ Gait Training/Functional Ambulation Treatment (ICD-10-PCS; principal; 2018-04-23)
PROC: F08Z1ZZ Dressing Techniques Treatment (ICD-10-PCS; principal; 2018-04-23)
PROC: F07Z5ZZ Bed Mobility Treatment (ICD-10-PCS; principal; 2018-04-23)
PROC: F08Z0ZZ Bathing/Showering Techniques Treatment (ICD-10-PCS; principal; 2018-04-23)
DX: Z47.1 Aftercare following joint replacement surgery (principal); Z96.642 Presence of left artificial hip joint; S72.002D Fracture of unspecified part of neck of left femur, subsequent encounter for closed fracture with routine healing; W19.XXXA Unspecified fall, initial encounter; E87.1 Hypo-osmolality and hyponatremia; M17.12 Unilateral primary osteoarthritis, left knee; K59.00 Constipation, unspecified; D64.9 Anemia, unspecified; E66.9 Obesity, unspecified; Z68.29 Body mass index [BMI] 29.0-29.9, adult; E11.9 Type 2 diabetes mellitus without complications; I10 Essential (primary) hypertension; E78.5 Hyperlipidemia, unspecified; E03.9 Hypothyroidism, unspecified; F32.9 Major depressive disorder, single episode, unspecified; B02.9 Zoster without complications; R01.1 Cardiac murmur, unspecified
CPT/HCPCS: 97110-GO; 97110-GP; 97112-GP; 97116-GP; 97161-GP; 97166-GO; 97530-GO; 97530-GP; 97535-GO; J1650

== ENCOUNTER → 2018-05-26 | Outpatient (CLI) | payer OTHER, MEDICARE | LOC: FIMAGING 09:49 | PROVIDERS: ATTEND Family Medicine | DX: M81.0 Age-related osteoporosis without current pathological fracture (principal) ==

== ENCOUNTER → 2018-09-29 | Outpatient (CLI) | payer OTHER, MEDICARE | LOC: FIMAGING 14:01 | PROVIDERS: ATTEND Orthopaedic Surgery | DX: Z01.818 Encounter for other preprocedural examination (principal); M17.12 Unilateral primary osteoarthritis, left knee; M71.22 Synovial cyst of popliteal space [Baker], left knee; N40.0 Benign prostatic hyperplasia without lower urinary tract symptoms ==

== ENCOUNTER 2018-11-26 12:54 | Emergency (ER) | payer OTHER, MEDICARE ==
--- NOTE | 2018-11-26 13:09 | EDPHY ---
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 No extensor deficits. No paresthesia. PHYSICAL EXAM (Prior to examination, patient consented to physical exam, hands were washed and my usual and customary physical exam procedures followed) 1) GENERAL: Well-developed, well-nourished, alert and oriented. Appears to be in no acute distress. 2) HEAD: Normocephalic 3) HEENT: sclera anicteric 4) LUNGS: Breathing comfortably. 5) SKIN: Lateral to the left 5th MCP 2 cm linear laceration. There is partial laceration of the underlying extensor tendon. 6) MUSCULOSKELETAL: He is able to hold extension against resistance with no gross extensor deficits. 7) NEUROLOGIC: Full sensation two-point discrimination intact distally Smoking Status: Never smoked Constitutional: Initial Vital Signs Temperature (C) 36.7 C 11/26/18 12:59 Heart Rate 76 11/26/18 12:59 Respiratory Rate 16 11/26/18 12:59 Blood Pressure 170/78 H 11/26/18 12:59 O2 Sat (%) 94 11/26/18 12:59 O2 Delivery Mode Room Air Allergies/Adverse Reactions: No Known Allergies Allergy (Verified 11/26/18 12:58) Home Medications: Medication Instructions Recorded Atorvastatin Calcium [Lipitor 40 40 mg PO HS #30 tab 04/29/18 mg (*)] Benazepril HCl [Lotensin (*)] 20 mg PO DAILY #30 tab 04/29/18 Escitalopram Oxalate [Lexapro 10 10 mg PO DAILY #30 tab 04/29/18 MG] Furosemide [Lasix 20 MG (*)] 20 mg PO DAILY #30 tab 04/29/18 Levothyroxine [Synthroid 137 mcg 137 mcg PO DAILY06 #30 tab 04/29/18 (*)] Linagliptin [Tradjenta] 5 mg PO DAILY #30 tablet 04/29/18 Pioglitazone HCl 30 mg PO DAILY #30 tablet 04/29/18 Zolpidem Tartrate [Ambien] 10 mg PO HS #30 tablet 04/29/18 Omeprazole 40 mg PO DAILY 09/23/18 Cephalexin [Keflex] 500 mg PO TID 7 Days cap 11/26/18 MDM/Departure - [facility] Procedures: Procedure: Laceration repair. I explained the indications, risks and benefits for both laceration repair and anesthetic administration. Verbal consent was obtained from the patient. The laceration on the left hand was anesthetized using 0.5% bupivicaine without epinephrine. After anesthetic administered the patient was observed for a period of time and had no apparent adverse effects. The wound was cleaned, prepped, draped in normal sterile fashion and explored to its base. No foreign body seen, no foreign bodies palpated. There were no deep structures involved. No tendon injury was identified. The wound was repaired with 5 simple interrupted 5 O Prolene sutures. The wound repair was simple. The procedure was performed by myself. Patient has been informed that scarring will occur, although efforts have been made to minimize this. ED Course/Re-evaluation: Patient is noted to have partial laceration of his extensor tendon overlying the 5th MCP. Consultation with on-call hand surgery Dr. Oleg Nathan at 1410 hours. Patient has previously seen Dr. Oleg Nathan for other hand related issues. Patient is started on prophylactic antibiotics, will skin has been closed and he will follow-up with Dr. Nathan. Patient feels comfortable being discharged. All questions and concerns addressed by myself. Patient given my usual and customary discharge precautions and instructions regarding their clinical impression. Care of patient under supervision of secondary supervising physician Dr Colon. - Depart Disposition: Home, Routine, Self-Care Clinical Impression: Laceration of hand, left Qualifiers: Encounter type: initial encounter Foreign body presence: without foreign body Qualified Code(s): S61.412A - Laceration without foreign body of left hand, initial encounter Condition: Good Instructions: Care For Your Stitches (ED), Laceration (ED) Additional Instructions: Return to the ER if you develop redness, swelling, discharge, warmth to the wound, red streaks going up your arm, or any other symptoms that concern you. Prescriptions: Cephalexin [Keflex] 500 mg PO TID 7 Days cap Referrals: Return, to the ER in 10 days for suture removal [Other] - As per Instructions Red Nathan MD [Medical Doctor] - 2-3 days, call for appt.
[2018-11-26 14:09] VITALS: BP 141/64
== END 2018-11-26 14:08 | disposition home or self-care (01) ==
PROC: 0HQGXZZ Repair Left Hand Skin, External Approach (ICD-10-PCS; principal; 2018-11-26)
DX: S66.327A Laceration of extensor muscle, fascia and tendon of left little finger at wrist and hand level, initial encounter (principal); W29.8XXA Contact with other powered hand tools and household machinery, initial encounter
CPT/HCPCS: 12001; 99283; L3925